=== PATIENT | female | born 1945 | race Caucasian/White ===

== ENCOUNTER 2019-02-26 11:35 | Emergency (ER) | payer MEDICARE, MEDICAID ==
[~2019-02-26] VITALS: Ht 180.3 cm; Wt 125.0 kg
--- NOTE | 2019-02-26 14:03 | NUR ---
ATTEMPT TO ARRANGE TRANSPORT, NO WHEELCHAIR VAN AVAILABLE. 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
--- NOTE | 2019-02-26 14:40 | NUR ---
ANGY ESPINOZA REPORTS 1 HOUR ETA FOR TRANSPORT.
[2019-02-26 14:50] VITALS: BP 138/78
--- NOTE | 2019-02-26 15:31 | NUR ---
TRANSPORT PER [phone] NUMBER HERE TO TRANSPORT PT HOME.
== END 2019-02-26 15:30 | disposition home or self-care (01) ==
LOC: ER 11:35
DX: S83.8X1A Sprain of other specified parts of right knee, initial encounter (principal); M25.461 Effusion, right knee; I48.91 Unspecified atrial fibrillation; G47.30 Sleep apnea, unspecified; Z88.6 Allergy status to analgesic agent; Z90.710 Acquired absence of both cervix and uterus; Z98.890 Other specified postprocedural states; Z95.0 Presence of cardiac pacemaker; W18.39XA Other fall on same level, initial encounter; Y93.89 Activity, other specified; Y92.89 Other specified places as the place of occurrence of the external cause; Y99.8 Other external cause status
CPT/HCPCS: 73564; 99283

== ENCOUNTER 2019-03-04 10:42 | Emergency (ER) | payer MEDICARE, MEDICAID ==
[2019-03-04] MEDS ORDERED: CEPH500C5 PO (11:50)
[2019-03-04] MEDS ORDERED: cephalexin 250mg capsule PO ONE (12:10)
[2019-03-04 12:38] VITALS: BP 146/83
--- NOTE | 2019-03-04 12:50 | NUR ---
SPOKE TO CINTHYA WITH [employer] SHE IS WORKING ON TRANSPORTATION
== END 2019-03-04 14:09 | disposition home or self-care (01) ==
LOC: ER 10:42
DX: L03.115 Cellulitis of right lower limb (principal); I48.91 Unspecified atrial fibrillation; Z95.0 Presence of cardiac pacemaker; Z90.710 Acquired absence of both cervix and uterus; Z98.890 Other specified postprocedural states; Z88.5 Allergy status to narcotic agent; Z88.8 Allergy status to other drugs, medicaments and biological substances; Z79.899 Other long term (current) drug therapy
CPT/HCPCS: 93971; 99284

== ENCOUNTER 2019-05-28 06:27 | Day surgery (SDC) | payer MEDICARE, MEDICAID ==
[2019-05-21 12:28] LABS: BASOPHILS # (AUTO) 0.1 X10'3 (0-0.2); BASOPHILS % (AUTO) 0.9 % (0-1); EOSINOPHILS # (AUTO) 0.2 X10'3 (0-0.9); EOSINOPHILS % (AUTO) 2.3 % (0-6); LYMPHOCYTES # (AUTO) 1.9 X10'3 (1.1-4.8); LYMPHOCYTES % (AUTO) 25.7 % (21-51); MEAN CORPUSCULAR HEMOGLOBIN 30.8 PG (27.0-31.0); MEAN CORPUSCULAR HGB CONC 33.2 g/dL (33.0-36.5); MEAN CORPUSCULAR VOLUME 92.7 FL (78-98); MEAN PLATELET VOLUME 8.3 FL (7.4-10.4); MONOCYTES # (AUTO) 0.7 X10'3 (0-0.9); MONOCYTES % (AUTO) 9.6 % (2-12); NEUTROPHILS # (AUTO) 4.5 X10'3 (1.8-7.7); NEUTROPHILS % (AUTO) 61.5 % (42-75); PRE OP HEMATOCRIT 42.5 % (35.0-45.0); PRE OP HEMOGLOBIN 14.1 g/dL (12.0-16.0); PRE OP PLATELET COUNT 278 X10'3 (140-440); RED BLOOD COUNT 4.59 X10'6 (4.20-5.60); RED CELL DISTRIBUTION WIDTH 14.3 % (11.5-14.5)
[2019-05-21 12:45] LABS: PRE OP PROTIME 16.5 SECONDS (9.0-12.0)
[2019-05-21 12:46] LABS: PRE OP INR 1.7 INR
[2019-05-21 12:50] LABS: ALBUMIN 3.6 G/DL (3.4-5.0); ALBUMIN/GLOBULIN RATIO 0.9 (1.1-1.5); ALKALINE PHOSPHATASE 135 IU/L (46-116); BLOOD UREA NITROGEN 19 MG/DL (7-18); BUN/CREATININE RATIO 20.9 (6.6-38.0); CALCIUM 9.3 MG/DL (8.5-10.1); CHLORIDE 105 MMOL/L (99-107); CREATININE 0.91 MG/DL (0.40-0.90); PRE OP ALT 25 U/L (30-65); PRE OP ANION GAP 5 (8-16); PRE OP AST 16 U/L (10-37); PRE OP BILIRUB, TOTAL 0.3 MG/DL (0.0-1.0); PRE OP GLUCOSE 97 MG/DL (70-104); PRE OP POTASSIUM 4.9 MMOL/L (3.4-5.1); PRE OP SODIUM 142 MMOL/L (135-145); TOTAL PROTEIN 7.7 G/DL (6.4-8.2); eGFR 60 ML/MIN
[~2019-05-28] VITALS: Ht 180.3 cm; Wt 119.0 kg
[~2019-05-28 06:27] MED LIST: AMLO-513 PO; BUPR150T6 PO; CALC500T43 PO; CHOL2000 PO; ESCI20TA38 PO; FENT-16 TOP; FLEC100T PO; FLUT15.87; FURO80TA3 PO; LORA10TA7 PO; POTA8CAP20 PO; ROSU5TAB12 PO; WARF-55 PO
[2019-05-28] MEDS ORDERED: BUPIVAcaine/PF 2.5mg/ml (0.25%) 10ml vial ONE (06:39)
[2019-05-28] MEDS ORDERED: LIDOcaine 1% (10mg/ml) 2ml vial ONE (06:56)
[2019-05-28] MEDS ORDERED: famotidine 20mg tablet PO ONE (07:00)
[2019-05-28] MEDS ORDERED: cefazolin/dext.iso 2gm/100 ML IV ONE (07:00)
[2019-05-28] MEDS ORDERED: ringers solution, lacted 1,000 ML IV SCH (07:00)
[2019-05-28 08:20] VITALS: BP 131/76
[2019-05-28] MEDS ORDERED: LIDOcaine 0.5% (5mg/ml) 50ml vial ONE (08:30)
[2019-05-28] MEDS ORDERED: fentaNYL/PF 50MCG/1 ML 2ML syringe ONE ×2 (08:33→08:44)
[2019-05-28] MEDS ORDERED: midazolam 2 mg/2 ml injection ONE ×2 (08:43→08:45)
[2019-05-28 09:05] VITALS: BP 130/66
--- NOTE | 2019-05-28 09:05 | NUR ---
Received from OR via BED, accompanied by Anesthesiologist DR GRIER and report given by Anesthesiolgist. PATIENT A&OX4, DENIES PAIN, V/S WNL, NEUROVASCULAR CHECKS INTACT, 20G PIV LUE, SCD ON, DRESSING TO RIGHT WRIST CDI ELEVATED WITH ICEBAG APPLIED.
[2019-05-28 09:15] VITALS: BP 124/69
[2019-05-28 09:25] VITALS: BP 129/68
[2019-05-28 09:35] VITALS: BP 121/65
--- NOTE | 2019-05-28 09:35 | NUR ---
PATIENT A&OX4, DENIES PAIN, V/S WNL, NEUROVASCULAR CHECKS INTACT, 20G PIV LUE D/C, SCD OFF, DRESSING TO RIGHT WRIST CDI ELEVATED WITH ICEBAG APPLIED. I HAVE REVIEWED D/C INSTRUCTIONS WITH PATIENT AND FAMILY AND THEY HAVE VERBALIZED UNDERSTANDING. PATIENT D/C HOME WITH ALL BELONGINGS AND FAMILY GAVE TRANSPORT HOME.
== END 2019-05-28 09:35 | disposition home or self-care (01) ==
LOC: PAS 06:27
PROVIDERS: ATTEND Orthopaedic Surgery Hand Surgery
DX: G56.01 Carpal tunnel syndrome, right upper limb (principal); G47.30 Sleep apnea, unspecified; I10 Essential (primary) hypertension; I48.91 Unspecified atrial fibrillation; Z95.0 Presence of cardiac pacemaker; Z88.5 Allergy status to narcotic agent; Z88.8 Allergy status to other drugs, medicaments and biological substances; Z91.040 Latex allergy status; Z96.653 Presence of artificial knee joint, bilateral; Z96.642 Presence of left artificial hip joint; Z79.899 Other long term (current) drug therapy; Z79.01 Long term (current) use of anticoagulants; Z72.89 Other problems related to lifestyle; Z87.891 Personal history of nicotine dependence
CPT/HCPCS: 36415; 64721; 80053; 82948; 85025; 85610; 85730; J2001; J2250; J3010; J3490; A4215; A6449; J7120

== ENCOUNTER 2021-10-23 10:29 | Day surgery (SDC) | payer MEDICARE, MEDICAID ==
[2021-10-19 11:14] LABS: HEMOGLOBIN 14.3 g/dl (12.0-16.0); MEAN PLATELET VOLUME 9.3 FL (7.4-10.4); WHITE BLOOD COUNT 5.5 X10'3 (4.5-11.0)
[2021-10-19 11:17] LABS: BASOPHILS # (AUTO) 0.1 X10'3 (0-0.2); EOSINOPHILS # (AUTO) 0.1 X10'3 (0-0.9); EOSINOPHILS % (AUTO) 2.1 % (0-6); HEMATOCRIT 42.2 % (35.0-45.0); LYMPHOCYTES # (AUTO) 1.7 X10'3 (1.1-4.8); LYMPHOCYTES % (AUTO) 30.9 % (21-51); MEAN CORPUSCULAR HEMOGLOBIN 32.1 PG (27.0-31.0); MEAN CORPUSCULAR HGB CONC 33.8 g/dL (33.0-36.5); MEAN CORPUSCULAR VOLUME 94.8 FL (78-98); MONOCYTES # (AUTO) 0.4 X10'3 (0-0.9); MONOCYTES % (AUTO) 6.7 % (2-12); NEUTROPHILS # (AUTO) 3.3 X10'3 (1.8-7.7); NEUTROPHILS % (AUTO) 59.3 % (42-75); PLATELET COUNT 260 X10'3 (140-440); RED BLOOD COUNT 4.45 X10'6 (4.20-5.60); RED CELL DISTRIBUTION WIDTH 13.9 % (11.5-14.5)
[2021-10-19 11:21] LABS: APTT 35 SECONDS (22-32)
[2021-10-19 11:37] LABS: ALANINE AMINOTRANSFERASE 24 U/L (12-78); ALBUMIN 3.8 G/DL (3.4-5.0); ALBUMIN/GLOBULIN RATIO 1.1 (1.1-1.5); ALKALINE PHOSPHATASE 122 IU/L (46-116); ANION GAP 7 (8-16); ASPARTATE AMINO TRANSFERASE 17 U/L (10-37); BILIRUBIN,TOTAL 0.5 MG/DL (0.1-1.0); BLOOD UREA NITROGEN 18 MG/DL (7-18); BUN/CREATININE RATIO 19.6 (6.6-38.0); CALCIUM 9.3 MG/DL (8.5-10.1); CHLORIDE 104 MMOL/L (99-107); CHOL/HDL RATIO 3.3 (0.00-4.99); CHOLESTEROL 175 MG/DL (0-200); CREATININE 0.92 MG/DL (0.40-0.90); GLUCOSE 90 MG/DL (70-104); HDL CHOLESTEROL 53 MG/DL (35-60); LDL CHOLESTEROL 94 MG/DL (50-100); SODIUM 140 MMOL/L (135-145); TOTAL CARBON DIOXIDE 29.5 MMOL/L (24-32); TOTAL PROTEIN 7.2 G/DL (6.4-8.2); TRIGLYCERIDES 83 MG/DL (20-135); eGFR 59 ML/MIN
[~2021-10-23] VITALS: Ht 180.3 cm; Wt 124.3 kg
[2021-10-23] VITALS (12 sets, daily range): BP systolic 108–128; BP diastolic 64–86
[~2021-10-23 10:29] MED LIST changes: +BUPR-317 PO; -BUPR150T6 PO; +CALC-932 PO; -CALC500T43 PO; -ESCI20TA38 PO; +ESCI20TA39 PO
[2021-10-23] MEDS ORDERED: SERT100T PO (10:52)
[2021-10-23] MEDS ORDERED: AMLO1TAB42 PO (10:53)
[2021-10-23] MEDS ORDERED: WARF6TAB49 PO (10:54)
[2021-10-23] MEDS ORDERED: ACET-1008 PO (10:55)
[2021-10-23] MEDS ORDERED: CHOL20004 PO (10:55)
[2021-10-23] MEDS ORDERED: MIDAZolam 1mg/ml 10ml vial IV ONE (11:00)
[2021-10-23] MEDS ORDERED: fentaNYL/PF 50MCG/1 ML 2ML syringe IV ONE (11:00)
[2021-10-23] MEDS ORDERED: normal saline 1000ml 1,000 ML IV SCH (11:00)
== END 2021-10-23 16:45 | disposition home or self-care (01) ==
LOC: SSTAY O 10:29
PROVIDERS: ATTEND Internal Medicine Interventional Cardiology
DX: I48.0 Paroxysmal atrial fibrillation (principal); G47.33 Obstructive sleep apnea (adult) (pediatric); I10 Essential (primary) hypertension; I49.5 Sick sinus syndrome; E78.5 Hyperlipidemia, unspecified; I65.29 Occlusion and stenosis of unspecified carotid artery; E66.9 Obesity, unspecified; Z68.38 Body mass index [BMI] 38.0-38.9, adult; M19.90 Unspecified osteoarthritis, unspecified site; Z79.899 Other long term (current) drug therapy; Z95.0 Presence of cardiac pacemaker; Z88.5 Allergy status to narcotic agent; Z91.09 Other allergy status, other than to drugs and biological substances
CPT/HCPCS: 36415; 80053; 80061; 83880; 85025; 85610; 85730; 92960; 94799; J2250; J3010; J7030

== ENCOUNTER 2021-11-13 11:22 | Emergency (ER) | payer MEDICARE, MEDICAID ==
[~2021-11-13] VITALS: Ht 182.9 cm; Wt 129.7 kg
[~2021-11-13 11:22] MED LIST changes: +ACET-1008 PO; -AMLO-513 PO; +AMLO1TAB42 PO; -CHOL2000 PO; +CHOL20004 PO; -ESCI20TA39 PO; -FENT-16 TOP; -LORA10TA7 PO; +SERT100T PO; -WARF-55 PO; +WARF6TAB49 PO
[2021-11-13 11:28] VITALS: BP 154/75
[2021-11-13] MEDS ORDERED: acetaminophen 325mg tablet PO ONE (12:45)
== END 2021-11-13 13:40 | disposition home or self-care (01) ==
LOC: ER 11:22
DX: R53.1 Weakness (principal); G47.30 Sleep apnea, unspecified; I48.91 Unspecified atrial fibrillation; Z87.19 Personal history of other diseases of the digestive system; Z79.899 Other long term (current) drug therapy; Z79.01 Long term (current) use of anticoagulants; Z91.040 Latex allergy status; Z88.8 Allergy status to other drugs, medicaments and biological substances; W19.XXXA Unspecified fall, initial encounter; Y93.89 Activity, other specified; Y92.89 Other specified places as the place of occurrence of the external cause; Y99.8 Other external cause status
CPT/HCPCS: 70450; 72125; 93005; 99284

== ENCOUNTER 2022-09-13 05:45 | Day surgery (SDC) | payer MEDICARE, MEDICAID ==
[2022-09-04 16:37] LABS: BASOPHILS # (AUTO) 0.1 X10'3 (0-0.2); BASOPHILS % (AUTO) 1.1 % (0-1); EOSINOPHILS # (AUTO) 0.1 X10'3 (0-0.9); EOSINOPHILS % (AUTO) 1.9 % (0-6); LYMPHOCYTES # (AUTO) 2.2 X10'3 (1.1-4.8); LYMPHOCYTES % (AUTO) 28.4 % (21-51); MEAN CORPUSCULAR HEMOGLOBIN 31.6 PG (27.0-31.0); MEAN CORPUSCULAR HGB CONC 33.2 g/dL (33.0-36.5); MEAN CORPUSCULAR VOLUME 95.4 FL (78-98); MONOCYTES # (AUTO) 0.6 X10'3 (0-0.9); NEUTROPHILS # (AUTO) 4.6 X10'3 (1.8-7.7); NEUTROPHILS % (AUTO) 60.6 % (42-75); PRE OP HEMATOCRIT 47.9 % (35.0-45.0); PRE OP HEMOGLOBIN 15.9 g/dL (12.0-16.0); PRE OP PLATELET COUNT 250 X10'3 (140-440); RED BLOOD COUNT 5.02 X10'6 (4.20-5.60); RED CELL DISTRIBUTION WIDTH 14.2 % (11.5-14.5)
[2022-09-04 16:48] LABS: ALBUMIN 3.7 G/DL (3.4-5.0); ALKALINE PHOSPHATASE 115 IU/L (46-116); BLOOD UREA NITROGEN 31 MG/DL (7-18); BUN/CREATININE RATIO 30.4 (6.6-38.0); CALCIUM 9.8 MG/DL (8.5-10.1); CHLORIDE 102 MMOL/L (99-107); CREATININE 1.02 MG/DL (0.40-0.90); PRE OP ALT 17 U/L (30-65); PRE OP ANION GAP 10 (8-16); PRE OP AST 22 U/L (10-37); PRE OP BILIRUB, TOTAL 0.6 MG/DL (0.0-1.0); PRE OP GLUCOSE 98 MG/DL (70-104); PRE OP POTASSIUM 3.9 MMOL/L (3.4-5.1); PRE OP SODIUM 142 MMOL/L (135-145); TOTAL CARBON DIOXIDE 30.4 MMOL/L (24-32); TOTAL PROTEIN 7.3 G/DL (6.4-8.2); eGFR 52 ML/MIN
[~2022-09-13] VITALS: Ht 177.8 cm; Wt 271.0 kg
[2022-09-13] VITALS (8 sets, daily range): BP systolic 112–132; BP diastolic 71–81
[~2022-09-13 05:45] MED LIST changes: -ACET-1008 PO; +ACET-75 PO; -AMLO1TAB42 PO; +APIX5TAB3 PO; +DICL100G30 TOP; +EMPA10TA PO; -FLEC100T PO; +SACU1TAB7 PO; -WARF6TAB49 PO; +ceFAZolin inj. 2,000 MG in dextrose 5%-water 100 ML IV ONE; +ceFAZolin inj. 3,000 MG in normal saline 100ml IV soln 100 ML IV ONE; +famotidine 20mg tablet PO ONE; +ringers solution, lacted 1,000 ML IV SCH
[2022-09-13] MEDS ORDERED: BUPIVAcaine 0.5% inj/PF 30 ML ONE (06:46)
[2022-09-13] MEDS ORDERED: morphine 2 MG/ML inj. syringe IV PRN (07:10)
[2022-09-13] MEDS ORDERED: hydrALAZINE 20mg/ml inj. IV PRN (07:10)
[2022-09-13] MEDS ORDERED: fentaNYL/PF 50MCG/1 ML 2ML syringe IV PRN ×2 (07:10)
[2022-09-13] MEDS ORDERED: ringers solution, lacted 1,000 ML IV SCH (07:10)
[2022-09-13] MEDS ORDERED: labetalol 20mg/4ml (5mg/ml) syringe IV PRN (07:10)
[2022-09-13] MEDS ORDERED: morphine 4 MG/ML inj SYRINge IV PRN (07:10)
[2022-09-13] MEDS ORDERED: ondansetron/PF 4mg/2ml inj IV PRN (07:10)
[2022-09-13] MEDS ORDERED: FENTANYL CITRATE/PF 50 MCG/1 ML VIAL ONE (07:15)
[2022-09-13] MEDS ORDERED: MIDAZolam 1mg/ml 10ml vial ONE (07:15)
[2022-09-13] MEDS ORDERED: ketorolac trometh. 30mg/ml inj. ONE (07:16)
[2022-09-13] MEDS ORDERED: LIDOcaine 0.5% (5mg/ml) 50ml vial ONE (07:16)
[2022-09-13] MEDS ORDERED: BUPIVAcaine 0.5% inj/PF 30 ml vial IJ ONE (08:11)
--- NOTE | 2022-09-13 08:47 | NUR ---
Received from OR via , accompanied by Anesthesiologist JARED AND OR NURSE and report given by Anesthesiolgist. PT IS A/OX4. DENIES PAIN OR DISCOMFORT. RT ARM SPLINT, GAUZE, DONTAE WRAP; CDI. VSS. Addendum: 09/13/22 at 1037 by Ghislaine Mota RN Amended: Links added.
== END 2022-09-13 10:27 | disposition home or self-care (01) ==
LOC: PAS 05:45
PROVIDERS: ATTEND Orthopaedic Surgery Hand Surgery
DX: M72.0 Palmar fascial fibromatosis [Dupuytren] (principal); I10 Essential (primary) hypertension; Z88.5 Allergy status to narcotic agent; Z91.040 Latex allergy status; Z90.710 Acquired absence of both cervix and uterus; Z95.0 Presence of cardiac pacemaker; Z96.653 Presence of artificial knee joint, bilateral; Z96.642 Presence of left artificial hip joint; Z79.01 Long term (current) use of anticoagulants; Z79.899 Other long term (current) drug therapy; Z87.891 Personal history of nicotine dependence
CPT/HCPCS: 26121; 36415; 80053; 82948; 85025; 93005; J0690; J1885; J2250; J3010; J3490; J7030; J7120; S0020; Z7506; Z7508; Z7512; A4215; A4618; A7000

== ENCOUNTER 2023-01-01 13:23 | Emergency (ER) | payer MEDICARE, MEDICAID ==
[~2023-01-01] VITALS: Ht 177.8 cm; Wt 123.6 kg
[~2023-01-01 13:23] MED LIST changes: -ceFAZolin inj. 2,000 MG in dextrose 5%-water 100 ML IV ONE; -ceFAZolin inj. 3,000 MG in normal saline 100ml IV soln 100 ML IV ONE; -famotidine 20mg tablet PO ONE; -ringers solution, lacted 1,000 ML IV SCH
--- NOTE | 2023-01-01 13:53 | NUR ---
VO for head CT from Dr. Hicks. reports he cleared pt of c-colar and reports no need for cervicle CT
[2023-01-01 15:37] VITALS: BP 131/94
== END 2023-01-01 15:58 | disposition home or self-care (01) ==
LOC: ER 13:24
DX: M25.562 Pain in left knee (principal); R51.9 Headache, unspecified; Z79.899 Other long term (current) drug therapy; I50.9 Heart failure, unspecified; F32.A Depression, unspecified; Z88.5 Allergy status to narcotic agent; Z91.040 Latex allergy status; W19.XXXA Unspecified fall, initial encounter; Y93.89 Activity, other specified; Y92.89 Other specified places as the place of occurrence of the external cause; Y99.8 Other external cause status
CPT/HCPCS: 70450; 73564; 99284

== ENCOUNTER 2023-07-01 11:55 | Day surgery (SDC) | payer MEDICARE, MEDICAID ==
[2023-06-27 12:37] LABS: BASOPHILS % (AUTO) 0.9 % (0-1); EOSINOPHILS # (AUTO) 0.1 X10'3 (0-0.9); EOSINOPHILS % (AUTO) 2.4 % (0-6); HEMATOCRIT 45.9 % (35.0-45.0); HEMOGLOBIN 15.2 g/dl (12.0-16.0); LYMPHOCYTES # (AUTO) 1.9 X10'3 (1.1-4.8); LYMPHOCYTES % (AUTO) 35.4 % (21-51); MEAN CORPUSCULAR HEMOGLOBIN 31.7 PG (27.0-31.0); MEAN CORPUSCULAR HGB CONC 33.1 g/dL (33.0-36.5); MEAN CORPUSCULAR VOLUME 95.9 FL (78-98); MEAN PLATELET VOLUME 9.3 FL (7.4-10.4); MONOCYTES # (AUTO) 0.4 X10'3 (0-0.9); MONOCYTES % (AUTO) 7.9 % (2-12); NEUTROPHILS # (AUTO) 2.9 X10'3 (1.8-7.7); NEUTROPHILS % (AUTO) 53.4 % (42-75); PLATELET COUNT 227 X10'3 (140-440); RED BLOOD COUNT 4.78 X10'6 (4.20-5.60); RED CELL DISTRIBUTION WIDTH 15.6 % (11.5-14.5); WHITE BLOOD COUNT 5.4 X10'3 (4.5-11.0)
[2023-06-27 12:46] LABS: APTT 29 SECONDS (22-32); PROTHROMBIN TIME 10.6 SECONDS (9.0-12.0)
[2023-06-27 12:51] LABS: ALBUMIN 3.6 G/DL (3.4-5.0); ANION GAP 6 (8-16); BLOOD UREA NITROGEN 15 MG/DL (7-18); CALCIUM 9.5 MG/DL (8.5-10.1); CHLORIDE 106 MMOL/L (99-107); CHOL/HDL RATIO 3.2 (0.00-4.99); CHOLESTEROL 141 MG/DL (0-200); GLUCOSE 87 MG/DL (70-104); HDL CHOLESTEROL 44 MG/DL (35-60); LDL CHOLESTEROL 76 MG/DL (50-100); SODIUM 140 MMOL/L (135-145); TOTAL CARBON DIOXIDE 27.8 MMOL/L (24-32); TRIGLYCERIDES 117 MG/DL (20-135); eGFR 53 ML/MIN
[~2023-07-01] VITALS: Ht 177.8 cm; Wt 118.6 kg
[2023-07-01] VITALS (11 sets, daily range): BP systolic 113–134; BP diastolic 62–97; PULSE 69–82; RESP 10–20; TEMP 98.6; O2SAT 94–97
[~2023-07-01 11:55] MED LIST changes: -DICL100G30 TOP; +DICL100G59 TOP
[2023-07-01] MEDS ORDERED: normal saline 1,000 ML IV SCH (12:15)
[2023-07-01] MEDS ORDERED: diphenhydrAMINE 25mg capsule PO PRN (12:15)
[2023-07-01] MEDS ORDERED: LORazepam 0.5 MG tablet PO PRN (12:15)
[2023-07-01] MEDS ORDERED: MECO10005 (12:47)
[2023-07-01] MEDS ORDERED: BUPR300T86 PO (12:47)
[2023-07-01] MEDS ORDERED: SOLI10TA7 PO (12:47)
[2023-07-01] MEDS ORDERED: METO-384 PO (12:47)
[2023-07-01] MEDS ORDERED: VITAMIN D (12:49)
[2023-07-01] MEDS ORDERED: iohexol 350MG/ML 100ml bottle IV ONE (14:38)
[2023-07-01] MEDS ORDERED: fentaNYL/PF 50MCG/1 ML 2ML syringe ONE (14:38)
[2023-07-01] MEDS ORDERED: heparin 1,000unit/ml 10ml vial 10 ML ONE (14:38)
[2023-07-01] MEDS ORDERED: verapamil 2.5 mg/ml inj IV ONE (14:38)
[2023-07-01] MEDS ORDERED: midazolam 1 mg/ML 2ml injection ONE (14:38)
[2023-07-01] MEDS ORDERED: nitroGLYCERIN 500mcg/5mL D5W 5 ML IV ONE (14:39)
[2023-07-01] MEDS ORDERED: LIDOcaine 1% (10mg/ml) 2ml vial ONE (15:04)
[2023-07-01] MEDS ORDERED: iohexol 350 MG/ML 50ML vial IV ONE (15:17)
[2023-07-01] MEDS ORDERED: OXAZEpam 15mg capsule PO PRN (16:20)
[2023-07-01] MEDS ORDERED: ondansetron/PF 4mg/2ml inj IV PRN (16:20)
[2023-07-01] MEDS ORDERED: proCHLORperazine 10 MG/2 ml inj IV PRN (16:20)
== END 2023-07-01 19:32 | disposition home or self-care (01) ==
LOC: SSTAY O 11:55
PROVIDERS: ATTEND Student in an Organized Health Care Education/Training Program
DX: I34.0 Nonrheumatic mitral (valve) insufficiency (principal); I48.91 Unspecified atrial fibrillation; E78.5 Hyperlipidemia, unspecified; I65.29 Occlusion and stenosis of unspecified carotid artery; I11.0 Hypertensive heart disease with heart failure; I50.9 Heart failure, unspecified; E66.9 Obesity, unspecified; Z68.37 Body mass index [BMI] 37.0-37.9, adult; M19.90 Unspecified osteoarthritis, unspecified site; I42.9 Cardiomyopathy, unspecified; G47.33 Obstructive sleep apnea (adult) (pediatric); Z95.0 Presence of cardiac pacemaker; Z79.899 Other long term (current) drug therapy; Z88.1 Allergy status to other antibiotic agents; Z88.5 Allergy status to narcotic agent; Z91.040 Latex allergy status; Z91.048 Other nonmedicinal substance allergy status
CPT/HCPCS: 36415; 80048; 80061; 85025; 85610; 85730; 93005; 93460; 99152; J1644; J2250; J3010; J3490; J7030; Q9967; A6258; A6402; A6449; C1751; C1894

== ENCOUNTER 2023-09-11 08:14 | Inpatient (IN) | payer MEDICARE, MEDICAID ==
[~2023-09-11] VITALS: Ht 177.8 cm; Wt 110.0 kg
[2023-09-11] VITALS (30 sets, daily range): BP systolic 121–177; BP diastolic 66–115; PULSE 77–108; RESP 10–26; TEMP 98.1–98.2; O2SAT 90–100
[~2023-09-11 08:14] MED LIST changes: +BUPR300T86 PO; -CHOL20004 PO; +MECO10005; +METO-384 PO; +SOLI10TA7 PO; +VITAMIN D
[2023-09-11] MEDS ORDERED: acetaminophen 1,000mg/100ml IV 100 ML IV STA (09:06)
[2023-09-11] MEDS ORDERED: propofol 10mg/ml 20ml vial IV ONE (09:20)
[2023-09-11] MEDS ORDERED: ondansetron/PF 4mg/2ml inj IV ONE ×2 (10:40→11:30)
[2023-09-11] MEDS ORDERED: morphine 2 MG/ML inj. syringe IV ONE ×2 (10:40→11:30)
[2023-09-11 11:21] LABS: BASOPHILS % (AUTO) 0.5 % (0-1); EOSINOPHILS % (AUTO) 0.7 % (0-6); HEMOGLOBIN 14.4 g/dl (12.0-16.0); LYMPHOCYTES # (AUTO) 0.9 X10'3 (1.1-4.8); LYMPHOCYTES % (AUTO) 12.9 % (21-51); MEAN CORPUSCULAR HEMOGLOBIN 31.8 PG (27.0-31.0); MEAN CORPUSCULAR HGB CONC 32.9 g/dL (33.0-36.5); MEAN CORPUSCULAR VOLUME 96.8 FL (78-98); MEAN PLATELET VOLUME 9.1 FL (7.4-10.4); MONOCYTES # (AUTO) 0.4 X10'3 (0-0.9); MONOCYTES % (AUTO) 5.9 % (2-12); NEUTROPHILS # (AUTO) 5.4 X10'3 (1.8-7.7); PLATELET COUNT 227 X10'3 (140-440); RED BLOOD COUNT 4.54 X10'6 (4.20-5.60); RED CELL DISTRIBUTION WIDTH 14.2 % (11.5-14.5); WHITE BLOOD COUNT 6.8 X10'3 (4.5-11.0)
[2023-09-11] MEDS ORDERED: magnesium 4gm in 100ml NS 100 ML IV PRN (11:30)
[2023-09-11] MEDS ORDERED: potassium Cl 20 mEq SR tablet PO PRN (11:30)
[2023-09-11] MEDS ORDERED: magnesium Cl slow-release 64mg tablet PO PRN (11:30)
[2023-09-11] MEDS ORDERED: morphine 2 MG/ML inj. syringe IV PRN ×2 (11:30→15:10)
[2023-09-11] MEDS ORDERED: mag hydrox/Alum hydrox/simeth 30ml oral suspension PO PRN (11:30)
[2023-09-11] MEDS ORDERED: bisacodyl 10mg suppository rectal RC PRN (11:30)
[2023-09-11] MEDS ORDERED: DICL20GE TOP (11:30)
[2023-09-11] MEDS ORDERED: magnesium 2GM in 50ml NS 50 ML IV PRN (11:30)
[2023-09-11] MEDS ORDERED: acetaminophen 325mg tablet PO PRN (11:30)
[2023-09-11] MEDS ORDERED: potassium Cl 40MEQ/1/2NS 520ml 520 ML IV PRN (11:30)
[2023-09-11] MEDS ORDERED: SACU1TAB PO (11:30)
[2023-09-11] MEDS ORDERED: ondansetron/PF 4mg/2ml inj IV PRN ×2 (11:30→15:10)
[2023-09-11] MEDS ORDERED: SOLI5TAB2 PO (11:30)
[2023-09-11 11:35] LABS: ALANINE AMINOTRANSFERASE 21 U/L (12-78); ALBUMIN 3.5 G/DL (3.4-5.0); ALKALINE PHOSPHATASE 127 IU/L (46-116); ANION GAP 8 (8-16); ASPARTATE AMINO TRANSFERASE 16 U/L (10-37); BILIRUBIN,TOTAL 0.6 MG/DL (0.1-1.0); BLOOD UREA NITROGEN 19 MG/DL (7-18); BUN/CREATININE RATIO 22.6 (10.0-20.0); CHLORIDE 105 MMOL/L (99-107); CREATININE 0.84 MG/DL (0.40-0.90); GLUCOSE 122 MG/DL (70-104); MAGNESIUM 2.1 MG/DL (1.5-2.4); POTASSIUM 3.8 MMOL/L (3.5-5.1); SODIUM 141 MMOL/L (135-145); TOTAL CARBON DIOXIDE 28.2 MMOL/L (24-32); TOTAL PROTEIN 6.9 G/DL (6.4-8.2); eCRCL 58 ML/MIN; eGFR 65 ML/MIN
[2023-09-11] MEDS: normal saline 1000ml 1,000 ML IV SCH ×2 (11:57→21:35)
[2023-09-11] MEDS ORDERED: proCHLORperazine 10 MG/2 ml inj IV PRN (15:10)
[2023-09-11] MEDS ORDERED: labetalol 20mg/4ml (5mg/ml) syringe IV PRN (15:10)
[2023-09-11] MEDS ORDERED: morphine 4 MG/ML inj SYRINge IV PRN (15:10)
[2023-09-11] MEDS ORDERED: meperidine/PF 25mg/ml syringe IV PRN ×2 (15:10)
[2023-09-11] MEDS ORDERED: enalaprilat dihydrate 2.5mg/2ml vial IV PRN (15:10)
[2023-09-11] MEDS ORDERED: ringers solution, lacted 1,000 ML IV SCH (15:10)
[2023-09-11] MEDS ORDERED: desflurane 240ml liquid inh. IH ONE (16:00)
[2023-09-11] MEDS ORDERED: midazolam 1 mg/ML 2ml injection ONE (16:21)
[2023-09-11] MEDS ORDERED: fentaNYL/PF 50MCG/1 ML 2ML syringe ONE (16:21)
[2023-09-11] MEDS ORDERED: propofol inj 20 ML IV ONE (16:42)
[2023-09-11] MEDS ORDERED: succinylcholine 20mg/ml inj IV ONE (16:42)
[2023-09-11] MEDS ORDERED: hydrALAZINE 20mg/ml inj. IV PRN (17:20)
[2023-09-11] MEDS: meperidine/PF 25mg/ml syringe IV PRN ×2 (17:42→17:49)
[2023-09-11] MEDS: metoprolol succinate 25mg (24-HOUR) SR. Tablet PO SCH ×2 (17:57→18:16)
[2023-09-11] MEDS: sacubitril/valsartan 24mg-26mg tablet PO SCH (17:58)
[2023-09-11] MEDS: K and/or MAG REPLACEMENT MC SCH (20:00)
[2023-09-11] MEDS: docusate sod 100mg capsule PO SCH (20:00)
[2023-09-11] MEDS: apixaban 2.5mg tablet PO SCH (20:00)
[2023-09-11] MEDS: fluticasone nasal spray 16GM bottle NS SCH (21:37)
[2023-09-12] MEDS ORDERED: non-formulary drug (Acetaminophen 1 TAB) PO SCH
[2023-09-12 00:10] VITALS: BP 144/71; PULSE 86
[2023-09-12 02:50] VITALS: BP 124/53; PULSE 77; RESP 16; TEMP 98.4; O2SAT 95
[2023-09-12] MEDS: morphine 2 MG/ML inj. syringe IV PRN ×2 (03:43→11:24)
[2023-09-12 06:00] VITALS: BP 124/67; PULSE 78; RESP 17; TEMP 97.7; O2SAT 95
[2023-09-12 06:42] LABS: BASOPHILS % (AUTO) 0.4 % (0-1); EOSINOPHILS % (AUTO) 0.5 % (0-6); HEMATOCRIT 37.6 % (35.0-45.0); HEMOGLOBIN 12.6 g/dl (12.0-16.0); LYMPHOCYTES # (AUTO) 1.2 X10'3 (1.1-4.8); LYMPHOCYTES % (AUTO) 15.8 % (21-51); MEAN CORPUSCULAR HEMOGLOBIN 32.3 PG (27.0-31.0); MEAN CORPUSCULAR HGB CONC 33.6 g/dL (33.0-36.5); MEAN CORPUSCULAR VOLUME 96.2 FL (78-98); MEAN PLATELET VOLUME 8.8 FL (7.4-10.4); MONOCYTES # (AUTO) 0.8 X10'3 (0-0.9); MONOCYTES % (AUTO) 10.5 % (2-12); NEUTROPHILS # (AUTO) 5.6 X10'3 (1.8-7.7); NEUTROPHILS % (AUTO) 72.8 % (42-75); PLATELET COUNT 188 X10'3 (140-440); RED BLOOD COUNT 3.91 X10'6 (4.20-5.60); RED CELL DISTRIBUTION WIDTH 14.3 % (11.5-14.5); WHITE BLOOD COUNT 7.7 X10'3 (4.5-11.0)
[2023-09-12] MEDS: potassium chloride 8mEq ER tablet PO SCH (07:28)
[2023-09-12] MEDS: sertraline 50mg tablet PO SCH (07:28)
[2023-09-12] MEDS: apixaban 2.5mg tablet PO SCH ×2 (07:28→20:36)
[2023-09-12] MEDS: docusate sod 100mg capsule PO SCH ×2 (07:28→20:36)
[2023-09-12] MEDS: furosemide 40mg tablet PO SCH (07:28)
[2023-09-12] MEDS: metoprolol succinate 25mg (24-HOUR) SR. Tablet PO SCH (07:29)
[2023-09-12] MEDS: sacubitril/valsartan 24mg-26mg tablet PO SCH ×2 (07:29→20:36)
[2023-09-12] MEDS: oxybutynin 5mg tablet PO SCH ×2 (07:29→20:36)
[2023-09-12] MEDS: EMPAGLIFLOZIN 10 MG TABLET PO SCH (07:29)
[2023-09-12] MEDS: buPROPion SR 150mg tablet PO SCH (07:29)
[2023-09-12 07:32] LABS: ALANINE AMINOTRANSFERASE 14 U/L (12-78); ALBUMIN 2.7 G/DL (3.4-5.0); ALBUMIN/GLOBULIN RATIO 0.9 (1.1-1.5); ALKALINE PHOSPHATASE 97 IU/L (46-116); ANION GAP 9 (8-16); ASPARTATE AMINO TRANSFERASE 17 U/L (10-37); BLOOD UREA NITROGEN 13 MG/DL (7-18); BUN/CREATININE RATIO 22.8 (10.0-20.0); CHLORIDE 106 MMOL/L (99-107); CREATININE 0.57 MG/DL (0.40-0.90); GLUCOSE 99 MG/DL (70-104); MAGNESIUM 1.9 MG/DL (1.5-2.4); POTASSIUM 3.5 MMOL/L (3.5-5.1); SODIUM 140 MMOL/L (135-145); TOTAL CARBON DIOXIDE 25.3 MMOL/L (24-32); TOTAL PROTEIN 5.6 G/DL (6.4-8.2); eCRCL 85 ML/MIN; eGFR > 90 ML/MIN
[2023-09-12] MEDS: K and/or MAG REPLACEMENT MC SCH ×2 (08:00→20:00)
[2023-09-12] MEDS ORDERED: non-formulary drug (Bupropion HCl (Bupropion Xl) 1 TAB) PO SCH (08:00)
[2023-09-12] MEDS: normal saline 1000ml 1,000 ML IV SCH ×3 (11:23→21:45)
[2023-09-12] MEDS: acetaminophen w/codeine (30MG) #3 tablet PO PRN ×2 (15:17→20:39)
[2023-09-12 18:00] VITALS: BP 111/61; PULSE 70; RESP 16; TEMP 97.8; O2SAT 94
[2023-09-12] MEDS: magnesium hydroxide 30ml (MOM) UD suspension PO PRN (20:36)
[2023-09-12] MEDS: fluticasone nasal spray 16GM bottle NS SCH (20:44)
[2023-09-12 22:00] VITALS: BP 126/77; PULSE 71; RESP 16; TEMP 97.1; O2SAT 96
[2023-09-13] VITALS (7 sets, daily range): BP systolic 133–150; BP diastolic 74–89; PULSE 63–76; RESP 16–18; TEMP 97.6–98.7; O2SAT 82–96
[2023-09-13] MEDS: acetaminophen w/codeine (30MG) #3 tablet PO PRN ×3 (00:46→14:40)
[2023-09-13 05:53] LABS: BASOPHILS % (AUTO) 0.6 % (0-1); EOSINOPHILS # (AUTO) 0.1 X10'3 (0-0.9); LYMPHOCYTES # (AUTO) 1.3 X10'3 (1.1-4.8); LYMPHOCYTES % (AUTO) 23.9 % (21-51); MEAN CORPUSCULAR HEMOGLOBIN 32.2 PG (27.0-31.0); MEAN CORPUSCULAR HGB CONC 33.3 g/dL (33.0-36.5); MEAN CORPUSCULAR VOLUME 96.8 FL (78-98); MEAN PLATELET VOLUME 9.3 FL (7.4-10.4); MONOCYTES # (AUTO) 0.7 X10'3 (0-0.9); MONOCYTES % (AUTO) 11.8 % (2-12); NEUTROPHILS # (AUTO) 3.4 X10'3 (1.8-7.7); NEUTROPHILS % (AUTO) 61.7 % (42-75); PLATELET COUNT 182 X10'3 (140-440); RED BLOOD COUNT 4.03 X10'6 (4.20-5.60); RED CELL DISTRIBUTION WIDTH 14.2 % (11.5-14.5); WHITE BLOOD COUNT 5.5 X10'3 (4.5-11.0)
[2023-09-13 05:55] LABS: ALANINE AMINOTRANSFERASE 16 U/L (12-78); ALBUMIN 2.7 G/DL (3.4-5.0); ALBUMIN/GLOBULIN RATIO 0.8 (1.1-1.5); ALKALINE PHOSPHATASE 98 IU/L (46-116); ANION GAP 7 (8-16); ASPARTATE AMINO TRANSFERASE 16 U/L (10-37); BILIRUBIN,TOTAL 0.9 MG/DL (0.1-1.0); BLOOD UREA NITROGEN 10 MG/DL (7-18); BUN/CREATININE RATIO 14.7 (10.0-20.0); CALCIUM 8.1 MG/DL (8.5-10.1); CHLORIDE 106 MMOL/L (99-107); CREATININE 0.68 MG/DL (0.40-0.90); GLUCOSE 92 MG/DL (70-104); MAGNESIUM 2.1 MG/DL (1.5-2.4); POTASSIUM 3.4 MMOL/L (3.5-5.1); SODIUM 140 MMOL/L (135-145); TOTAL CARBON DIOXIDE 26.7 MMOL/L (24-32); eCRCL 71 ML/MIN; eGFR 83 ML/MIN
[2023-09-13] MEDS: K and/or MAG REPLACEMENT MC SCH ×2 (08:00→20:10)
[2023-09-13] MEDS: potassium Cl 20 mEq SR tablet PO PRN ×2 (08:12→12:05)
[2023-09-13] MEDS: buPROPion SR 150mg tablet PO SCH (08:13)
[2023-09-13] MEDS: docusate sod 100mg capsule PO SCH ×2 (08:13→20:14)
[2023-09-13] MEDS: EMPAGLIFLOZIN 10 MG TABLET PO SCH (08:13)
[2023-09-13] MEDS: metoprolol succinate 25mg (24-HOUR) SR. Tablet PO SCH (08:13)
[2023-09-13] MEDS: potassium chloride 8mEq ER tablet PO SCH (08:13)
[2023-09-13] MEDS: apixaban 2.5mg tablet PO SCH ×2 (08:13→20:14)
[2023-09-13] MEDS: oxybutynin 5mg tablet PO SCH ×2 (08:14→20:14)
[2023-09-13] MEDS: normal saline 1000ml 1,000 ML IV SCH ×2 (08:14→23:30)
[2023-09-13] MEDS: sertraline 50mg tablet PO SCH (08:14)
[2023-09-13] MEDS: furosemide 40mg tablet PO SCH (08:14)
[2023-09-13] MEDS: sacubitril/valsartan 24mg-26mg tablet PO SCH ×2 (08:20→20:14)
[2023-09-13] MEDS: morphine 2 MG/ML inj. syringe IV PRN (15:42)
[2023-09-13] MEDS: magnesium hydroxide 30ml (MOM) UD suspension PO PRN (15:54)
[2023-09-13] MEDS: fluticasone nasal spray 16GM bottle NS SCH (20:17)
[2023-09-14] MEDS: normal saline 1000ml 1,000 ML IV SCH ×2 (01:37→21:14)
[2023-09-14 06:00] VITALS: BP 161/92; PULSE 82; RESP 16; TEMP 97; O2SAT 93
[2023-09-14 06:08] LABS: BASOPHILS # (AUTO) 0.1 X10'3 (0-0.2); BASOPHILS % (AUTO) 1.5 % (0-1); EOSINOPHILS # (AUTO) 0.1 X10'3 (0-0.9); EOSINOPHILS % (AUTO) 2.1 % (0-6); LYMPHOCYTES # (AUTO) 1.1 X10'3 (1.1-4.8); LYMPHOCYTES % (AUTO) 17.7 % (21-51); MEAN CORPUSCULAR HGB CONC 33.3 g/dL (33.0-36.5); MEAN CORPUSCULAR VOLUME 96.2 FL (78-98); MONOCYTES # (AUTO) 0.5 X10'3 (0-0.9); MONOCYTES % (AUTO) 8.6 % (2-12); NEUTROPHILS # (AUTO) 4.3 X10'3 (1.8-7.7); NEUTROPHILS % (AUTO) 70.1 % (42-75); PLATELET COUNT 187 X10'3 (140-440); RED BLOOD COUNT 4.06 X10'6 (4.20-5.60); RED CELL DISTRIBUTION WIDTH 14.4 % (11.5-14.5); WHITE BLOOD COUNT 6.1 X10'3 (4.5-11.0)
[2023-09-14 06:35] LABS: ALANINE AMINOTRANSFERASE 25 U/L (12-78); ALBUMIN 2.6 G/DL (3.4-5.0); ALBUMIN/GLOBULIN RATIO 0.8 (1.1-1.5); ALKALINE PHOSPHATASE 115 IU/L (46-116); ANION GAP 7 (8-16); ASPARTATE AMINO TRANSFERASE 26 U/L (10-37); BILIRUBIN,TOTAL 0.8 MG/DL (0.1-1.0); BLOOD UREA NITROGEN 11 MG/DL (7-18); BUN/CREATININE RATIO 17.7 (10.0-20.0); CALCIUM 8.1 MG/DL (8.5-10.1); CHLORIDE 108 MMOL/L (99-107); CREATININE 0.62 MG/DL (0.40-0.90); GLUCOSE 93 MG/DL (70-104); MAGNESIUM 2.2 MG/DL (1.5-2.4); POTASSIUM 3.8 MMOL/L (3.5-5.1); SODIUM 143 MMOL/L (135-145); TOTAL CARBON DIOXIDE 27.8 MMOL/L (24-32); TOTAL PROTEIN 5.9 G/DL (6.4-8.2); eCRCL 78 ML/MIN; eGFR > 90 ML/MIN
[2023-09-14] MEDS: morphine 2 MG/ML inj. syringe IV PRN (06:46)
[2023-09-14] MEDS: K and/or MAG REPLACEMENT MC SCH ×2 (07:35→20:00)
[2023-09-14] MEDS: docusate sod 100mg capsule PO SCH ×2 (07:43→21:13)
[2023-09-14] MEDS: potassium chloride 8mEq ER tablet PO SCH (07:44)
[2023-09-14] MEDS: oxybutynin 5mg tablet PO SCH ×2 (07:44→21:13)
[2023-09-14] MEDS: furosemide 40mg tablet PO SCH (07:44)
[2023-09-14] MEDS: apixaban 2.5mg tablet PO SCH ×2 (07:44→21:13)
[2023-09-14] MEDS: metoprolol succinate 25mg (24-HOUR) SR. Tablet PO SCH (07:44)
[2023-09-14] MEDS: sacubitril/valsartan 24mg-26mg tablet PO SCH ×2 (07:44→21:13)
[2023-09-14] MEDS: buPROPion SR 150mg tablet PO SCH (07:44)
[2023-09-14] MEDS: sertraline 50mg tablet PO SCH (07:44)
[2023-09-14] MEDS: EMPAGLIFLOZIN 10 MG TABLET PO SCH (07:45)
[2023-09-14 10:00] VITALS: BP 147/80; PULSE 77; RESP 14; TEMP 98; O2SAT 94
[2023-09-14] MEDS: acetaminophen w/codeine (30MG) #3 tablet PO PRN (13:26)
[2023-09-14 18:00] VITALS: BP 134/75; PULSE 71; RESP 16; TEMP 98.1; O2SAT 96
[2023-09-14] MEDS: fluticasone nasal spray 16GM bottle NS SCH (21:00)
[2023-09-14 21:10] VITALS: BP 139/60; PULSE 76; RESP 16; TEMP 98; O2SAT 96
[2023-09-14 22:00] VITALS: BP 143/86; PULSE 65; RESP 16; TEMP 99.1; O2SAT 97
[2023-09-15] MEDS: normal saline 1000ml 1,000 ML IV SCH ×2 (05:30→07:17)
[2023-09-15 06:00] VITALS: BP 160/86; PULSE 69; RESP 16; TEMP 98.4; O2SAT 97
[2023-09-15] MEDS: K and/or MAG REPLACEMENT MC SCH (07:09)
[2023-09-15] MEDS: acetaminophen w/codeine (30MG) #3 tablet PO PRN ×2 (07:19→16:06)
[2023-09-15] MEDS: sacubitril/valsartan 24mg-26mg tablet PO SCH (07:20)
[2023-09-15] MEDS: sertraline 50mg tablet PO SCH (07:20)
[2023-09-15] MEDS: buPROPion SR 150mg tablet PO SCH (07:20)
[2023-09-15] MEDS: oxybutynin 5mg tablet PO SCH (07:21)
[2023-09-15] MEDS: furosemide 40mg tablet PO SCH (07:21)
[2023-09-15] MEDS: docusate sod 100mg capsule PO SCH (07:21)
[2023-09-15] MEDS: potassium chloride 8mEq ER tablet PO SCH (07:21)
[2023-09-15 07:22] LABS: BASOPHILS % (AUTO) 0.7 % (0-1); EOSINOPHILS # (AUTO) 0.2 X10'3 (0-0.9); EOSINOPHILS % (AUTO) 3.1 % (0-6); LYMPHOCYTES # (AUTO) 1.2 X10'3 (1.1-4.8); LYMPHOCYTES % (AUTO) 19.7 % (21-51); MEAN CORPUSCULAR HEMOGLOBIN 32.1 PG (27.0-31.0); MEAN CORPUSCULAR HGB CONC 33.4 g/dL (33.0-36.5); MEAN CORPUSCULAR VOLUME 95.8 FL (78-98); MEAN PLATELET VOLUME 9.3 FL (7.4-10.4); MONOCYTES # (AUTO) 0.6 X10'3 (0-0.9); MONOCYTES % (AUTO) 10.9 % (2-12); NEUTROPHILS # (AUTO) 3.9 X10'3 (1.8-7.7); NEUTROPHILS % (AUTO) 65.6 % (42-75); PLATELET COUNT 210 X10'3 (140-440); RED BLOOD COUNT 4.07 X10'6 (4.20-5.60); RED CELL DISTRIBUTION WIDTH 13.8 % (11.5-14.5)
[2023-09-15] MEDS: metoprolol succinate 25mg (24-HOUR) SR. Tablet PO SCH (07:22)
[2023-09-15] MEDS: apixaban 2.5mg tablet PO SCH (07:23)
[2023-09-15] MEDS: EMPAGLIFLOZIN 10 MG TABLET PO SCH (07:23)
[2023-09-15 08:02] LABS: ALANINE AMINOTRANSFERASE 31 U/L (12-78); ALBUMIN 2.4 G/DL (3.4-5.0); ALBUMIN/GLOBULIN RATIO 0.7 (1.1-1.5); ALKALINE PHOSPHATASE 122 IU/L (46-116); ANION GAP 9 (8-16); ASPARTATE AMINO TRANSFERASE 30 U/L (10-37); BILIRUBIN,TOTAL 1.1 MG/DL (0.1-1.0); BLOOD UREA NITROGEN 10 MG/DL (7-18); BUN/CREATININE RATIO 15.2 (10.0-20.0); CALCIUM 8.1 MG/DL (8.5-10.1); CHLORIDE 106 MMOL/L (99-107); CREATININE 0.66 MG/DL (0.40-0.90); GLUCOSE 92 MG/DL (70-104); POTASSIUM 3.2 MMOL/L (3.5-5.1); SODIUM 142 MMOL/L (135-145); TOTAL CARBON DIOXIDE 26.6 MMOL/L (24-32); TOTAL PROTEIN 5.8 G/DL (6.4-8.2); eCRCL 74 ML/MIN; eGFR 86 ML/MIN
[2023-09-15 10:00] VITALS: BP 128/84; PULSE 73; RESP 17; TEMP 98.2; O2SAT 96
== END 2023-09-15 16:56 | DRG 561 ==
LOC: ER 08:14 → ED HOLD 11:33 → ORTHO 4S 20:16
PROVIDERS: ADMIT Family Medicine; ATTEND Family Medicine
PROC: 0SWBXJZ Revision of Synthetic Substitute in Left Hip Joint, External Approach (ICD-10-PCS; principal; 2020-09-11)
DX: T84.021A Dislocation of internal left hip prosthesis, initial encounter (principal); I50.9 Heart failure, unspecified; I11.0 Hypertensive heart disease with heart failure
CPT/HCPCS: 36415; 71045; 73501; 73502; 80053; 83735; 85025; 87081; 93005; 94760; 97110; 97161; 97530; 99285; A4314; A4338; A4615; A4618; A4620; A6154; A6213; G0378; J0131; J0330; J2175; J2250; J2270; J2405; J2704; J3010; J7030

== ENCOUNTER 2025-07-07 05:36 | Inpatient (IN) | payer MEDICARE, MEDICAID ==
[~2025-07-07] VITALS: Ht 177.8 cm; Wt 110.0 kg
[~2025-07-07 05:36] MED LIST changes: -BUPR-317 PO; +BUPR-480 PO; +BUPR-726 PO; -BUPR300T86 PO; -DICL100G59 TOP; +DICL20GE TOP; -MECO10005; +MECO10005 PO; -ROSU5TAB12 PO; +ROSU5TAB51 PO; +SACU1TAB PO; -SACU1TAB7 PO; -SOLI10TA7 PO; +SOLI5TAB2 PO; -VITAMIN D; +VITAMIN D PO
--- NOTE | 2025-07-07 06:30 | Physician Documentation ---
Addendum CHIEF COMPLAINT/HPI: The patient is an 80-year-old female with a history of left hip prosthesis that has been dislocated in the past. She also has a history of atrial fibrillation, congestive heart failure, shortness of breath, arthritis and hypertension. She has been unable to bear weight on the left leg for 2-3 days. She was seen at [facility] on 07/04/2025 and an x-ray was taken of the left hip which was reported as the joint being in normal position. However, she reports that at some time she was in a special wheelchair which was very painful and she has not been able to bear weight since then. The patient is a poor historian. Although she is able to tell me her full name, the year and where she is currently she is not able to tell me why she went to [facility] on 07/04/2025 (records from [facility] indicate that her chief complaint was hip pain.). REVIEW OF SYSTEMS: Constitutional: Denies chills, fatigue, fever, weight gain or weight loss. HEENT: Denies hearing loss, sinus pressure or visual changes. Respiratory: Denies cough, shortness of breath or wheezing. Cardiovascular: Denies chest pain, pain while walking (claudication), edema or palpitations. Gastrointestinal: Denies abdominal pain, blood in stool, constipation, diarrhea, heartburn, loss of appetite, nausea or vomiting. Genitourinary: Denies painful urination (dysuria), excessive amount of urine (polyuria) or urinary frequency. Metabolic/Endocrine: Denies cold intolerance, heat intolerance, excessive thirst (polydipsia) or excessive hunger (polyphagia). Neurological: Denies dizziness, extremity numbness, extremity weakness, headaches, seizures or tremors. Psychiatric: Denies anxiety or depression. Integumentary: Denies breast discharge, breast lump, hives, mole change(s), rash or skin lesion. Musculoskeletal: Left hip pain. Hematologic: Denies easily bleeding, easily bruises, lymphedema or issues with blood clots. Immunologic: Denies food allergies or seasonal allergies. PHYSICAL EXAMINATION: Vitals and nursing note reviewed. Constitutional: General: Patient is awake, alert, oriented x 4 in no acute distress and well appearing. Speech is clear and lucid. Appearance: Normal appearance. Patient is not ill-appearing, toxic-appearing or diaphoretic. HENT: Head: Normocephalic and atraumatic. Mouth: Mucous membranes are moist. Pharynx: Oropharynx is clear. Eyes: General: No scleral icterus. Extraocular Movements: Extraocular movements intact. Pupils: Pupils are equal, round, and reactive to light. Neck: Supple, no Kernig or Brudzinski sign. Cardiovascular: Rate and Rhythm: Normal rate and regular rhythm. Heart sounds: No murmur heard. Pulmonary: Effort: No respiratory distress. Breath sounds: No wheezing, rhonchi or rales. Abdominal: General: There is no distension. Palpations: There is no fluid wave, hepatomegaly or mass. Tenderness: There is no abdominal tenderness. There is no guarding. Musculoskeletal: General: The left leg is shortened and externally rotated. Neurovascular is intact. Skin: Coloration: Skin is not jaundiced. Findings: No erythema or rash. Neurological: Mental Status: Patient is alert. An x-ray of the left hip shows a dislocation of the prosthesis. MEDICAL DECISION MAKING: Procedural Sedation: ASA Score: ASA I A normal healthy patient ASA II A patient with mild systemic disease ASA III A patient with severe systemic disease ASA IV A patient with severe systemic disease that is a constant threat to life Time: 8:00 a.m. Informed consent was given to the patient. Indication, alternatives, and potential complications were explained. A nurse was present at the bedside for the entire procedure. See moderate sedation flowsheet for pre- procedure assessment, and pre-and post-procedure vitals. Risks and benefits including aspiration, apnea, anoxia, and were discussed with the patient. Timeout was performed at 8:00 a.m.. Confirmed patient, side, location. Patient was on cardiovascular monitor with end-tidal and oxygen. Suction was available and on. [id number] was ready and prepared. Consent in chart. PIV in with fluids running. ETCO2 and NC connected to patient. Suction was turned on with Yankauer attached. BVM attached to wall oxygen. Oral/nasal airways, Mac/Lopez blades and ET tubes with stylets available. Reversal meds prepared including Narcan 0.4 mg if opioid was being used, not drawn up Epinephrine, cardiac syringe (1:10,000) also available but unopened. Treatment: Bolus propofol titrated, total dose 200 mg for full sedation The patient was monitored with pulse oximetry and cardiac and blood pressure monitor. olus propofol titrated, total dose 200 mg for full sedation were used IV and moderate sedation was achieved. There were no complications and the patient was stable throughout the procedure and at time of discharge. Total time of procedure was 30 minutes. Several attempts were made to reduce the hip utilizing the Captain Stvee maneuver. Unfortunately, they were unsuccessful. 8:40 a.m.: I spoke with our orthopedic surgeon, Dr. York, who requested that I get the patient admitted to the hospitalist and keep her at bedrest. Departure Disposition: ADMITTED INPATIENT Admitted to Inpatient Unit: to hospitalist Admission Level of Care: Med/Surg Impression: Primary Impression: Hip dislocation, left Condition: Stable LEANNE JONES MD Jul 07, 2025 06:30
--- NOTE | 2025-07-07 07:01 | RADIOLOGY REPORT ---
CLINICAL INDICATION: HIP PAIN TECHNIQUE: DI HIP UNILATERAL 2 VIEWS Comparison: DI HIP UNILATERAL 2 VIEWS on DOS: 09/11/23, DI HIP, 1 VIEW WITH PELVIS on DOS: 09/11/23, DI HIP UNILATERAL 2 VIEWS on DOS: 09/11/23 FINDINGS/IMPRESSION: : Hardware within the left hip status post arthroplasty. There is disarticulation of the acetabular and femoral prostheses consistent with dislocation resulting in cephalad subluxation of the femoral prosthesis with respect to the acetabulum. Diffuse generalized osseous demineralization noted. No definite evidence of fracture. Soft tissues are unremarkable.
[2025-07-07 07:43] LABS: MEAN PLATELET VOLUME 8.3 FL (7.4-10.4); RED CELL DISTRIBUTION WIDTH 15.3 % (11.5-14.5)
[2025-07-07 07:53] LABS: INR 1.2 INR
[2025-07-07 07:56] LABS: CREATININE 0.64 MG/DL (0.40-0.90); TOTAL CARBON DIOXIDE 27.5 MMOL/L (24-32); eCRCL 73 ML/MIN; eGFR 89 ML/MIN
--- NOTE | 2025-07-07 07:57 | ELECTROCARDIOGRAPH REPORT ---
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
[2025-07-07] MEDS: normal saline 1000ml 1,000 ML IV ONE (08:00)
[2025-07-07] MEDS: ondansetron/PF 4mg/2ml inj IV ONE (08:00)
[2025-07-07] MEDS: propofol 10mg/ml 20ml vial IV ONE (08:40)
--- NOTE | 2025-07-07 08:54 | RADIOLOGY REPORT ---
left HIP RADIOGRAPH. CLINICAL INDICATION: s/p reduction TECHNIQUE: 3 views of the left hip were obtained. FIndings/Impression: Hardware within the left hip status post arthroplasty. There is disarticulation of the acetabular and femoral prostheses consistent with dislocation resulting in cephalad subluxation of the femoral prosthesis with respect to the acetabulum. Diffuse generalized osseous demineralization noted. No definite evidence of fracture. Soft tissues are unremarkable.
[2025-07-07] MEDS ORDERED: magnesium Cl slow-release 64mg tablet PO PRN (08:55)
[2025-07-07] MEDS ORDERED: ondansetron/PF 4mg/2ml inj IV PRN (08:55)
[2025-07-07] MEDS ORDERED: magnesium hydroxide 30ml (MOM) UD suspension PO PRN (08:55)
[2025-07-07] MEDS ORDERED: magnesium sulf-water 4G/100mL 100 ML IV PRN (08:55)
[2025-07-07] MEDS ORDERED: magnesium sulf-water 2g/50mL 50 ML IV PRN (08:55)
[2025-07-07] MEDS ORDERED: potassium Cl 20 mEq SR tablet PO PRN ×2 (08:55)
[2025-07-07] MEDS ORDERED: mag hydrox/Alum hydrox/simeth 30ml oral suspension PO PRN (08:55)
[2025-07-07] MEDS ORDERED: potassium Cl 40MEQ/1/2NS 520ml 520 ML IV PRN (08:55)
[2025-07-07 11:30] VITALS: BP 118/70; PULSE 79; RESP 12; TEMP 98; O2SAT 99
[2025-07-07] MEDS: morphine 4 MG/ML inj SYRINge IV PRN (12:46)
--- NOTE | 2025-07-07 13:05 | RADIOLOGY REPORT ---
CLINICAL INDICATION: LEFT HIP DISLOCATION, PENDING SURGERY TECHNIQUE: DI HIP UNILATERAL 2 VIEWS Comparison: DI HIP UNILATERAL 2 VIEWS on DOS: 07/07/25, DI HIP UNILATERAL 2 VIEWS on DOS: 07/07/25, DI HIP UNILATERAL 2 VIEWS on DOS: 09/11/23, DI HIP, 1 VIEW WITH PELVIS on DOS: 09/11/23, DI HIP UNILATERAL 2 VIEWS on DOS: 09/11/23 FINDINGS/IMPRESSION: : Dislocated femoral component of left hip arthroplasty.
[2025-07-07 18:00] VITALS: BP 117/72; PULSE 97; RESP 16; TEMP 98.2; O2SAT 94
[2025-07-07] MEDS: docusate sod 100mg capsule PO SCH (19:51)
[2025-07-07] MEDS: K and/or MAG REPLACEMENT MC SCH (20:00)
[2025-07-07] MEDS: fluticasone nasal spray 16GM bottle NS SCH (21:00)
--- NOTE | 2025-07-07 21:04 | HISTORY AND PHYSICAL-Residence ---
History & Physical Providers to CC Resident Creating Document: MARGOMaryNATASHAH, RES ~ History of Present Illness Primary Medical Doctor: DR BARBOSA Reason for Admit\\Complaint: Left hip pain History of Present Illness 80 years old female with past medical history of left hip prosthesis, congestive heart failure, atrial fibrillation, arthritis , hypertension anxiety, depression, pacemaker is admitted for left hip pain. Patient endorses unbearable pain on the left leg for 2-3 days. She was seen at [facility] on 07/04/2025 and an x-ray was taken of the left hip which reported as the joint being in the normal position. However she reports that sometime while she was in patient wheelchair she felt sudden pain that she was not able to bear since then. Patient is overall a poor historian. She mentioned 9/10 stabbing type of pain which is on left hip, aggravated by moving leg and relieved by taking rest, nonradiating, with no associated numbness and tingling, not relieved by wfga-xqw-glostoc medications Patient is overall a poor historian Allergies: Coded Allergies: diltiazem (Verified Allergy, Unknown, 07/01/23) doxycycline (Verified Allergy, Unknown, 07/01/23) rifampin (Verified Allergy, Unknown, 07/01/23) hydrocodone bit (Unverified Adverse Reaction, Severe, SEVERE N/V AND HALLUCINATIONS, 05/27/19) SHE IS OK WITH CODEINE, CAN TAKE T#3 BUT NOT HYDROCODONE OR "ANOTHER OPIOID THAT THE RN TOLD HER WAS STRONGER" (OXYCODONE?) latex (Verified Adverse Reaction, Intermediate, IRRITATION IF PLACED ON OPEN CUTS, 05/27/19) Home Medications Home Medications Active Reported Voltaren Arthritis Pain (Diclofenac Sodium) 1 % Gel..gram. 2 Gm TOP QID VESICARE tablet (Solifenacin Succinate) 5 Mg Tablet 1 Tab PO DAILY 30 Days Entresto 24 mg-26 mg Tablet (Sacubitril/Valsartan) 24 Mg-26 Mg Tablet 1 Tab PO Q12H 30 Days [vitamin d3 50mcg] DAILY B12 Active (Mecobalamin) 1,000 Mcg Tab.chew DAILY Bupropion Xl (Bupropion HCl) 300 Mg Tab.er.24h 1 Tab PO DAILY Metoprolol Succinate 50 Mg Tab.sr.24h 1 Tab PO DAILY Acetaminophen 500 Mg Tablet 1 Tab PO Q8H Jardiance (Empagliflozin) 10 Mg Tablet 1 Tab PO DAILY Eliquis (Apixaban) 5 Mg Tablet 2.5 Mg PO BID Zoloft (Sertraline Hcl) 100 Mg Tablet 1 Tab PO DAILY Slow-K 8 Meq* (Potassium Chloride) 8 Meq Capsule.sa 2 Tab PO DAILY Furosemide 80 Mg Tablet 0.5 Tab PO DAILY Rosuvastatin Calcium 5 Mg Tablet 1 Tab PO 1200 Bupropion Xl (Bupropion HCl) 150 Mg Tab.er.24h 1 Tab PO DAILY Oyster Shell Calcium (Calcium Carbonate) 500 Mg Tablet 1 Tab PO TID 24 Hour Allergy Relief (Fluticasone Propionate) 15.8 Ml [place].susp 1 [place] NA HS Past Medical History Past Medical History Hypertension Congestive heart failure Osteoarthritis Atrial fibrillation Past Surgical History Surgical History Comment Pacemaker Left hip arthroplasty Hysterectomy Past Social History Social History Comment Patient does not have primary care physician Her parole or probation officer was Dr. Mary Andres Lives alone in-home caregivers Uses her wheeled walker Lives In: Home, Assisted Care Occupation: retired ROS ROS Constitutional: Denies chills, fatigue, fever, weight gain or weight loss. HEENT: Denies hearing loss, sinus pressure or visual changes. Respiratory: Denies cough, shortness of breath or wheezing. Cardiovascular: Denies chest pain, pain while walking (claudication), edema or palpitations. Gastrointestinal: Denies abdominal pain, blood in stool, constipation, diarrhea, heartburn, loss of appetite, nausea or vomiting. Genitourinary: Denies painful urination (dysuria), excessive amount of urine (polyuria) or urinary frequency. Metabolic/Endocrine: Denies cold intolerance, heat intolerance, excessive thirst (polydipsia) or excessive hunger (polyphagia). Neurological: Denies dizziness, extremity numbness, extremity weakness, headaches, seizures or tremors. Psychiatric: Denies anxiety or depression. Integumentary: Denies breast discharge, breast lump, hives, mole change(s), rash or skin lesion. Musculoskeletal: Left hip pain, knee pain Hematologic: Denies easily bleeding, easily bruises, lymphedema or issues with blood clots. Immunologic: Denies food allergies or seasonal allergies. Exam Vitals: Vital Signs Date Time Temp Pulse Resp B/P (MAP) Pulse Ox O2 Delivery O2 Flow Rate FiO2 07/07/25 19:52 16 07/07/25 18:30 102 10/9/25 11:30 98.0 118/70 (86) 99 Room Air 07/07/25 10:06 2.0 General: GENERAL: Awake, alert, oriented x4 HEENT : Normocephalic, atraumatic, pupils equal and reactive to light, extraocular movements intact, no scleral icterus or conjunctival pallor,oral mucosa moist NECK: neck is supple, trachea midline, no lymphadenopathy, no thyromegaly, no JV distention RESPIRATORY: Chest expansion equal bilaterally, breath sounds vesicular, no wheezes, or rhonchi. No use of accessory muscles, no tenderness on palpation. CARDIOVASCULAR: S1 and S2 heard, 3/6 blowing type of systolic ejection murmur heard over mitral, tricuspid, aortic area ABDOMEN: Soft, nontender, nondistended, bowel sounds present and normoactive. No organomegaly, no palpable mass, no rebound or guarding NEUROLOGICAL: Alert, oriented, normal memory, speech is normal Cranial nerves II-XII- intact Motor strength 4/5 in upper extremity, could not elicit in lower extremities Sensation-intact in all extremities Reflexes +2 and symmetrical Coordination is intact EXTREMITIES: Bilateral lower extremity lymphedema is present, peripheral pulses felt, left leg is deformed and rotated externally, straight leg raising of left leg he is positive Psychiatric:Appropriate mood and affect, Diagnostic Data Last Recorded Lab Results: 07/07/25 0716 07/07/25 0716 Diagnostic Data: Laboratory Tests Test 07/07/25 07:16 Prothrombin Time 12.3 SECONDS (9.0-12.0) H INR International Normalized Ratio 1.2 INR Coagulation Comments Advance Care Planning Advanced Care plannin - 30 Minutes Additional Plan 80 years old female with past medical history of atrial fibrillation, congestive heart failure, urinary incontinence, osteoarthritis is currently evaluated for left hip pain Left hip pain secondary to Dislocation of internal left hip prosthesis Patient complains of left hip pain which is 9/10 intensity Vitals are normal, WBC count is normal, hemoglobin 10.5, alkaline phosphatase 183 Hip x-ray shows: Dislocated femoral component of left hip arthroplasty. Orthopedics Dr. lagunas was consulted by ED and he he is involved in the care, planning to do surgery tomorrow Patient we will be NPO from midnight Atrial fibrillation Patient has a history of atrial fib and she is on Eliquis and metoprolol Continue metoprolol and held Eliquis in view of surgery Hypertension Patient is currently maintaining soft blood pressure Congestive heart failure not in exacerbation Patient currently not in acute distress We will continue Entresto Jardiance tomorrow after surgery Follow up with echocardiogram Anxiety/depression Started buprenorphine, sertraline Osteoarthritis Follow up with outpatient orthopedician Code Status: DNR Analgesia/Sedation: Morphine Line/tube: Peripheral Nutrition: NPO PT: Ordered Prognosis: Guarded Disposition: Patient will monitoring ortho with 24 hours telemetry. Patient will undergo surgery tomorrow with Dr. Lagunas so she is currently on NPO Susan Duggan PGY1-Internal Medicine Resident Date of Service: Jul 07, 2025 Billing Provider: MARCELINO URIAS MD Common Visit Codes: [id number] INP/OBS CARE (HIGH) Secondary Visit Codes: [id number] CARE PLAN 30 MINUTES SUSAN DUGGAN, RES Jul 07, 2025 21:04 MARCELINO URIAS MD Jul 12, 2025 15:24
[2025-07-07 22:00] VITALS: BP 105/56; PULSE 105; RESP 16; TEMP 98.5; O2SAT 95
[2025-07-07] MEDS ORDERED: PERFLUTREN PROTEIN-A MICROSPHR (Optison) 0.22 MG/ML 3ML VIAL IV PRN (22:00)
[2025-07-08 06:00] VITALS: BP 114/63; PULSE 98; RESP 16; TEMP 99; O2SAT 98
[2025-07-08 06:46] LABS: MEAN PLATELET VOLUME 8.1 FL (7.4-10.4); RED CELL DISTRIBUTION WIDTH 15.6 % (11.5-14.5)
[2025-07-08 07:14] LABS: CREATININE 0.56 MG/DL (0.40-0.90); PRO BRAIN NATRIURETIC PEPTIDE 2275 PG/ML (0-450); TOTAL CARBON DIOXIDE 26.2 MMOL/L (24-32); eCRCL 84 ML/MIN; eGFR > 90 ML/MIN
[2025-07-08 08:00] VITALS: RESP 14; O2SAT 97
[2025-07-08] MEDS ORDERED: BUPROPION HCL 150MG XL 24 HR 150 MG TAB PO SCH (08:00)
[2025-07-08] MEDS: metoprolol succinate 25mg (24-HOUR) SR. Tablet PO SCH (08:20)
[2025-07-08] MEDS: BUPROPION HCL 150MG XL 24 HR 150 MG TAB PO SCH (08:24)
[2025-07-08 08:41] VITALS: RESP 15; O2SAT 98
[2025-07-08] MEDS: ringers solution, lacted 1,000 ML IV SCH (09:45)
[2025-07-08] MEDS ORDERED: morphine 4 MG/ML inj SYRINge IV PRN (09:45)
[2025-07-08] MEDS ORDERED: labetalol 20mg/4ml (5mg/ml) syringe IV PRN (09:45)
[2025-07-08] MEDS ORDERED: ondansetron/PF 4mg/2ml inj IV PRN (09:45)
[2025-07-08] MEDS ORDERED: hydrALAZINE 20mg/ml inj. IV PRN (09:45)
[2025-07-08] MEDS ORDERED: fentaNYL/PF 50MCG/1 ML 2ML syringe IV PRN ×2 (09:45)
[2025-07-08 10:00] VITALS: BP 106/61; PULSE 87; RESP 14; TEMP 99.1; O2SAT 97
[2025-07-08 10:56] VITALS: BP 106/61; PULSE 87; RESP 15; TEMP 99.1; O2SAT 97
[2025-07-08] MEDS: ringers solution, lacted 1,000 ML IV ONE (11:00)
--- NOTE | 2025-07-08 15:28 | PROGRESS NOTE- Residence ---
Progress Note - Resident Providers to CC Resident Creating Document: LIZANDRO FINN RES ~ Antibiotic Timeout Antibiotic Ordered?: No Subjective Patient was seen and examined at the bedside. Surgery was postponed to tomorrow by Dr. Lagunas. NPO after midnight. Pain control with morphine Objective Vital Signs Date Time Temp Pulse Resp B/P (MAP) Pulse Ox O2 Delivery O2 Flow Rate FiO2 07/08/25 14:07 14 07/08/25 10:56 99.0 87 97 07/08/25 10:00 106/61 (76) Room Air 07/07/25 10:06 2.0 Result Diagram: 07/08/25 0607/08/25 06 GENERAL: Awake, alert, oriented x4 HEENT : Normocephalic, atraumatic, pupils equal and reactive to light, extraocular movements intact, no scleral icterus or conjunctival pallor,oral mucosa moist NECK: neck is supple, trachea midline, no lymphadenopathy, no thyromegaly, no JV distention RESPIRATORY: Chest expansion equal bilaterally, breath sounds vesicular, no wheezes, or rhonchi. No use of accessory muscles, no tenderness on palpation. CARDIOVASCULAR: S1 and S2 heard, 3/6 blowing type of systolic ejection murmur heard over mitral, tricuspid, aortic area ABDOMEN: Soft, nontender, nondistended, bowel sounds present and normoactive. No organomegaly, no palpable mass, no rebound or guarding NEUROLOGICAL: Alert, oriented, normal memory, speech is normal Cranial nerves II-XII- intact Motor strength 4/5 in upper extremity, could not elicit in lower extremities Sensation-intact in all extremities Reflexes +2 and symmetrical Coordination is intact EXTREMITIES: Bilateral lower extremity lymphedema is present, peripheral pulses felt, left leg is deformed and rotated externally, straight leg raising of left leg he is positive Psychiatric:Appropriate mood and affect, Coagulation Studies Laboratory Tests Test 07/07/25 07:16 Prothrombin Time 12.3 SECONDS (9.0-12.0) H INR International Normalized Ratio 1.2 INR Coagulation Comments Assessment Assessment 80 years old female with past medical history of left hip prosthesis, congestive heart failure, atrial fibrillation, arthritis , hypertension anxiety, depression, pacemaker is admitted for left hip pain. Patient endorses unbearable pain on the left leg for 2-3 days. She was seen at [facility] on 07/04/2025 and an x-ray was taken of the left hip which reported as the joint being in the normal position. However she reports that sometime while she was in patient wheelchair she felt sudden pain that she was not able to bear since then. Patient is overall a poor historian. She mentioned 9/10 stabbing type of pain which is on left hip, aggravated by moving leg and relieved by taking rest, nonradiating, with no associated numbness and tingling, not relieved by zxlf-wwc-xdsnlla medications Patient is overall a poor historian Plan Plan Left hip pain secondary to Dislocation of internal left hip prosthesis Patient complains of left hip pain which is 9/10 intensity Vitals are normal, WBC count is normal, hemoglobin 10.5, alkaline phosphatase 183 Hip x-ray shows: Dislocated femoral component of left hip arthroplasty. Orthopedics Dr. lagunas was consulted by ED and he he is involved in the care, planning to do surgery tomorrow Patient we will be NPO from midnight Atrial fibrillation without RVR Patient has a history of atrial fib and she is on Eliquis and metoprolol Continue metoprolol and held Eliquis in view of surgery Hypertension Patient is currently maintaining soft blood pressure Congestive heart failure not in exacerbation Patient currently not in acute distress We will continue Entresto, Jardiance tomorrow after surgery Follow up with echocardiogram Anxiety/depression Started buprenorphine, sertraline Osteoarthritis Pain medication as tolerated Code Status: DNR Analgesia/Sedation: Morphine Line/tube: Peripheral Nutrition: NPO after midnight PT: Ordered Prognosis: Guarded Disposition: Patient will monitoring ortho with 24 hours telemetry. Patient will undergo surgery tomorrow with Dr. Lagunas so she is currently on NPO after midnight Lizandro Frank MD PGY2 internal medicine resident Date of Service: Jul 08, 2025 Billing Provider: MARCELINO URIAS MD Common Visit Codes: [id number] INP/OBS CARE(HIGH) LIZANDRO FINN, RES Jul 08, 2025 15:28 MARCELINO URIAS MD Jul 12, 2025 15:24
[2025-07-08 22:00] VITALS: BP 113/62; PULSE 78; RESP 14; TEMP 97.5; O2SAT 100
[2025-07-09] VITALS (22 sets, daily range): BP systolic 89–121; BP diastolic 32–80; PULSE 77–134; RESP 10–20; TEMP 97.7–98; O2SAT 94–100
--- NOTE | 2025-07-09 05:27 | CARDIOLOGY REPORT ---
APPROVED REPORT EXAM: Comprehensive 2D, Doppler, and color-flow Echocardiogram. 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 3.29 cm IVC 19.58 mm FS (%) 36.5 % SV 72.0 ml CO 6.1 L/min M-Mode Dimensions Aortic Root 1.87 (2.2-3.7cm) Aortic Cusp Exc 0.89 (1.5-2.0cm) Aortic Valve AoV Peak Joaquin. 336.0 cm/s AoV VTI 72.9 cm AO Peak GR. 45.2 mmHg AO Mean GR. 27 mmHg LVOT VTI 27.64 cm LVOT Peak Joaquin. 134.6 cm/s SYD(VTI)/BSA 1.20 cm2/m2 SYD (VTI) 1.20 cm2 AV DI 0.38 % Mitral Valve MV E Velocity 181.7 cm/s MV Peak Gr. 13 mmHg MV Mean Gr. 5 mmHg MVA (PHT) 2.75 cm2 MVA VTI 2.39 cm2 Tricuspid Valve TR P. Velocity 287 cm/s RAP ESTIMATE 10 mmHg TR Peak Gr. 33 mmHg RVSP 43 mmHg LEFT VENTRICLE Normal LV size and wall thickness. Overall systolic function is normal. LVEF is 65%. RIGHT VENTRICLE Right ventricle is mildly dilated withi adequate function. Elevated right heart pressures with an RVSP of 43 mmHg. ATRIA Left atrium is severely dilated. AORTIC VALVE Trileaflet AV is moderately stenotic. SYD is measured at 1.20 cmsq. Peak / mean gradients of 45 / 27 mmHG. Peak velocity is measured at 3.36 m/sec. Trace insufficiency. MITRAL VALVE Moderate mitral annular calcification. MV clip present with gradient of 13 / 5 mmHg. Peak velocity is measured at 1.82 m/sec. Moderate eccentric regurgitation anteriorly directed. TRICUSPID VALVE The tricuspid valve is normal in structure with mild regurgitation. PULMONIC VALVE Pulmonic valve is not well visualized with physiologic insufficiency. GREAT VESSELS The aortic root is normal in size. The ascending aorta is normal in size. IVC is normal in size. PERICARDIUM Normal pericardium. No effusion. Other Information Study Quality: Adequate Conclusion Normal LV size and wall thickness. Overall systolic function is normal. LVEF is 65%. Right ventricle is mildly dilated withi adequate function. Elevated right heart pressures with an RVSP of 43 mmHg. Left atrium is severely dilated. Trileaflet AV is moderately stenotic. SYD is measured at 1.20 cmsq. Peak / mean gradients of 45 / 27 mmHG. Peak velocity is measured at 3.36 m/sec. Trace insufficiency. Moderate mitral annular calcification. MV clip present with gradient of 13 / 5 mmHg. Peak velocity is measured at 1.82 m/sec. Moderate eccentric regurgitation anteriorly directed. The tricuspid valve is normal in structure with mild regurgitation. Normal pericardium. No effusion.
[2025-07-09] MEDS ORDERED: vancomycin 1,000mg inj ONE (07:00)
[2025-07-09] MEDS ORDERED: tranexamic acid 100mg/ml inj. ONE (07:01)
[2025-07-09] MEDS ORDERED: morphine 4 MG/ML inj SYRINge IV PRN ×2 (07:05→07:17)
[2025-07-09] MEDS ORDERED: labetalol 20mg/4ml (5mg/ml) syringe IV PRN (07:05)
[2025-07-09] MEDS: ringers solution, lacted 1,000 ML IV SCH (07:05)
[2025-07-09] MEDS ORDERED: fentaNYL/PF 50MCG/1 ML 2ML syringe IV PRN ×2 (07:05)
[2025-07-09] MEDS ORDERED: hydrALAZINE 20mg/ml inj. IV PRN (07:05)
[2025-07-09] MEDS ORDERED: ondansetron/PF 4mg/2ml inj IV PRN (07:05)
[2025-07-09 07:22] LABS: MEAN PLATELET VOLUME 8.5 FL (7.4-10.4); RED CELL DISTRIBUTION WIDTH 14.9 % (11.5-14.5)
[2025-07-09] MEDS ORDERED: LIDOcaine 2% (20mg/ml) 5ml vial ONE (07:51)
[2025-07-09] MEDS ORDERED: propofol inj 20 ML IV ONE (07:51)
[2025-07-09] MEDS ORDERED: dexamethasone sod phosphate 4mg/ml inj. ONE (07:51)
[2025-07-09] MEDS ORDERED: ondansetron/PF 4mg/2ml inj ONE (07:51)
[2025-07-09 08:03] LABS: CREATININE 0.56 MG/DL (0.40-0.90); TOTAL CARBON DIOXIDE 26.8 MMOL/L (24-32); eCRCL 84 ML/MIN; eGFR > 90 ML/MIN
[2025-07-09] MEDS ORDERED: metoprolol tartrate 1mg/ml inj IV ONE ×2 (08:07→09:04)
[2025-07-09] MEDS ORDERED: fentaNYL/PF 50MCG/1 ML 2ML syringe ONE ×3 (08:24→10:06)
[2025-07-09] MEDS ORDERED: albumin (Human) 5% 250ml 250 ML IV ONE ×4 (08:34→10:06)
[2025-07-09] MEDS ORDERED: albumin (Human) 5% 250ml 1,000 ML IV ONE (09:36)
[2025-07-09] MEDS ORDERED: amiodarone/D5 360MG/200ML BAG 200 ML IV ONE (09:37)
[2025-07-09 11:27] LABS: ISTAT ANION GAP 12 (8-12); ISTAT BUN 19 mg/dL (7-18); ISTAT CL 105 mmol/L (99-107); ISTAT CREATININE 0.6 mg/dL (0.6-1.1); ISTAT GLUCOSE 120 mg/dL (70-104); ISTAT HGB 8.5 g/dl (12.0-16.0); ISTAT Hct 25 %PCV (35-45); ISTAT IONIZED CALCIUM 1.26 mmol/L (1.03-1.32); ISTAT K 4.3 mmol/L (3.5-5.1); ISTAT NA 139 mmol/L (135-145); ISTAT TOTAL CO2 22 mmol/L (24-32); ISTAT eGFR > 90 ML/MIN; POC BUN/CREATININE RATIO 31.7 (6.6-38.0)
[2025-07-09 12:30] LABS: ISTAT ANION GAP 11 (8-12); ISTAT BUN 20 mg/dL (7-18); ISTAT CL 105 mmol/L (99-107); ISTAT CREATININE 0.6 mg/dL (0.6-1.1); ISTAT GLUCOSE 147 mg/dL (70-104); ISTAT HGB 10.9 g/dl (12.0-16.0); ISTAT Hct 32 %PCV (35-45); ISTAT IONIZED CALCIUM 1.24 mmol/L (1.03-1.32); ISTAT K 4.6 mmol/L (3.5-5.1); ISTAT NA 139 mmol/L (135-145); ISTAT TOTAL CO2 23 mmol/L (24-32); ISTAT eGFR > 90 ML/MIN; POC BUN/CREATININE RATIO 33.3 (6.6-38.0)
--- NOTE | 2025-07-09 12:32 | CONSULTATION REPORT ---
History of Present Illness Providers to CC ~ Reason for Admit\\Admit Dx: Left hip pain Refering MD: DR BARBOSA History of Present Illness Orthopedic consultation. History of present illness: 80-year-old female with a long history status post total hip arthroplasty with recurrent dislocations. She presented to the [facility] with left hip pain a proximally three days prior to this admission and was discharged to home with progressive left hip pain. She presented as presented to our emergency room and workup revealed evidence of a dislocation that was irreducible in the emergency room of her left total hip arthroplasty I was consulted to for evaluation and treatment. Patient was admitted by the hospitalist service in preparation for potential surgery. Past medical history/surgical history was reviewed and is as per the admitting history and physical form. This patient is a poor historian and her memory is compromise. This patient was unable to tell us who did her surgery or when her surgery was performed in fracture was not aware of having had surgery to this hip despite recurrent dislocations. I evaluated this patient in the orthopedic floor within 24 hours of her admission. Still having left hip pain and shortening of her left leg. She denied any other injury. Examination revealed a small abrasion of the anterior left knee two two abrasions were present these measuring 1-1/2-2 cm in diameter affecting the epidermis only these were recent abrasions from her fall. Patient had good distal pulses and capillary refill to this lower extremity. She was able to dorsiflex and plantar flex her ankle and toes. There were no other apparent orthopedic injuries on the initial exam. X-rays: These reveal a dislocation with marked proximal migration of the femoral implant some evidence of osteolysis involving proximal femoral stem aspirate slightly vertical placement of the acetabular cup and increased anteversion was noted in his positioning potentially adding to the risk for dislocations. Cup type was felt to be a Depuy implant with a chori stem implants looked reasonably stable on x-rays. Assessment: Grossly unstable left total hip arthroplasty in 1-year-old female with having multiple traumatic dislocations and reductions. . Plan: Long discussion ensued with this patient with regards to treatment options. She was adamant about surgical staple attempt as surgical stabilization of the hip. This patient was at increased risk for potential complications in the potential for recurrent instability was discussed this is despite surgical stabilization attempt. Patient will be placed in the surgery schedule for open versus closed reduction of the hip and revision of the left total hip arthroplasty with likely stabilization of the hip using a constrained cup liner. I obtained informed consents after discussing in detail the indications the risks benefits limitations and potential complications of surgery she was informed that she was at elevated risk for potential complications stimulant due to her age and a history of multiple dislocations and instability Assessment: Allergies: Coded Allergies: diltiazem (Verified Allergy, Unknown, 07/01/23) doxycycline (Verified Allergy, Unknown, 07/01/23) rifampin (Verified Allergy, Unknown, 07/01/23) hydrocodone bit (Unverified Adverse Reaction, Severe, SEVERE N/V AND HALLUCINATIONS, 05/27/19) SHE IS OK WITH CODEINE, CAN TAKE T#3 BUT NOT HYDROCODONE OR "ANOTHER OPIOID THAT THE RN TOLD HER WAS STRONGER" (OXYCODONE?) latex (Verified Adverse Reaction, Intermediate, IRRITATION IF PLACED ON OPEN CUTS, 05/27/19) Home Medications Home Medications Active Reported Voltaren Arthritis Pain (Diclofenac Sodium) 1 % Gel..gram. 2 Gm TOP QID VESICARE tablet (Solifenacin Succinate) 5 Mg Tablet 1 Tab PO DAILY 30 Days Entresto 24 mg-26 mg Tablet (Sacubitril/Valsartan) 24 Mg-26 Mg Tablet 1 Tab PO Q12H 30 Days [vitamin d3 50mcg] DAILY B12 Active (Mecobalamin) 1,000 Mcg Tab.chew DAILY Bupropion Xl (Bupropion HCl) 300 Mg Tab.er.24h 1 Tab PO DAILY Metoprolol Succinate 50 Mg Tab.sr.24h 1 Tab PO DAILY Acetaminophen 500 Mg Tablet 1 Tab PO Q8H Jardiance (Empagliflozin) 10 Mg Tablet 1 Tab PO DAILY Eliquis (Apixaban) 5 Mg Tablet 2.5 Mg PO BID Zoloft (Sertraline Hcl) 100 Mg Tablet 1 Tab PO DAILY Slow-K 8 Meq* (Potassium Chloride) 8 Meq Capsule.sa 2 Tab PO DAILY Furosemide 80 Mg Tablet 0.5 Tab PO DAILY Rosuvastatin Calcium 5 Mg Tablet 1 Tab PO 1200 Bupropion Xl (Bupropion HCl) 150 Mg Tab.er.24h 1 Tab PO DAILY Oyster Shell Calcium (Calcium Carbonate) 500 Mg Tablet 1 Tab PO TID 24 Hour Allergy Relief (Fluticasone Propionate) 15.8 Ml [place].susp 1 [place] NA HS Physical Exam Last Vital Signs Recorded: Temperature: 98.0, Source: Oral, Heart Rate: 92, Respiratory Rate: 14, BP: 111/69, Pulse Oximetry: 98, Weight: 110.000 Results Diagram Lab Result Diagram: 07/09/2562407/09/2525 KYLER DWYER MD Jul 09, 2025 12:32
--- NOTE | 2025-07-09 12:48 | OPERATIVE REPORT ---
Operative Report Providers to ~ Date of Procedure: Jul 09, 2025 Pre-Operative Diagnosis: left Hip Dislocation Post-Operative Diagnosis SAME as PRE-Op Procedure Performed Open reduction left total hip arthroplasty. Extensive debridement the metallosis material and debris. Placement of a bipolar head with the extent extended with a neck length of 7 mm after it was found that the acetabular cup could not be revised as the metal liner could not be removed . Surgeon: Kyler Dwyer MD [place] None Type of Anesthesia: General Findings: Patient was found to have extensive metallosis grossly unstable total hip with evidence of multiple dislocations. Patient had significant osteolysis surrounding the acetabular cup posteriorly as well as anteriorly patient was found to have significant osteolysis of the proximal femoral stem. Complications None Prosthetics\Implants used: The pew bipolar head was placed in the hip after removing the metal femoral head component. Estimated Blood Loss: 1200 cc Specimen Removed: Metal femoral head. Description of Procedure: This patient was taken to the operating room for a left hip that was grossly unstable and having had required recurrent dislocations. Patient was once in the operating room given prophylactic antibiotics after I had obtained informed consent discussing with her the indications risks benefits limitations and potential complications of the surgery. I had signed her left hip she was given prophylactic antibiotics taken to the operating room and given a general anesthetic placed in the OR table Winston catheter had been inserted prior to the beginning of the procedure. She was now position on the OR table in a right lateral decubitus position using the hip digital data analyst system. The hip on examination an attempt to a closed reduction was unstable and can not be reduced closed. The hip was now prepped and draped in usual sterile orthopaedic fashion surgical time-out was taken and the case was begun. Direct lateral incision of the [place] was used for the potential need to do an extensile approach. this incision measured approximately 10 in. Dissection was then carried through a significant adipose layer but meticulous care was to maintain hemostasis abductor group was released off of the greater trochanter. Moderate bleeding was encountered by a large venous complex in the abductor group of muscle proximally requiring a stick tied to help with minimizing bleeding once this was controlled dissection was then carried down further to visualize the proximal femur which was dislocated posteriorly this was now reduced with traction and external rotation to expose the femoral head the metallic femoral head was removed without difficulty after anterior capsulotomy was accomplished to expose the acetabular component with the proximal femoral stem internally rotated in retracted posteriorly 360 degree view of the cup was appreciated significant osteolysis from metal oasis was encountered requiring extensive debridement could not and removal this material there was areas of significant cavitation surrounding the acetabular component held with the acetabular component remained stable This is a metal on metal construct with a metal liner in this to pew cup. It is well-known that this cup is difficult to remove and we after making attempts for over 45 minutes trying to remove the liner was felt that removing of the liner can not be done without disrupting the cup requiring and a very extensive revision of both the femoral and acetabular components. At this point in time reduction of the hip was accomplished with a placement of a bipolar head two make an effort to try to produce improve stability with this technique without doing a very extensive procedure that was potentially placing this patient is at risk. Surgical time-out this time was approximately 2-1/2 and blood loss was approximately a 1000 cc at this time. Anesthesiologist was recommending minimizing the intervention for patient's safety. Bipolar head was definitive implant was placed in the hip on the femoral component adding approximately 7 mm of length for additional stability of the hip was now reduced. The abductor group was placed and reattached to the proximal greater trochanter and closure of the capsule was accomplished 1. Vicryl abductor group was closed with 2. FiberWire Hemovac was placed into the wound at the into the joint level extending out distally and laterally into the mid thigh hemostasis had been controlled with 2-0 Vicryl ties and chris ctrocautery. Iliotibial band and tensor fascia luis were closed with a running suture of 1. Vicryl. Subcuticular closure was accomplished with a 2-0 Vicryl in a layered fashion subcuticular closure was accomplished with 2-0 Vicryl the skin was closed with skin kerline and sealed with Dermabond skin glue island dressings were applied Hemovac drain was connected. Prior to closure 3 L of antibiotic impregnated normal saline was used pulsatile irrigation and 1 L of antiseptic solution was used for irrigation following that. 1 g of vancomycin was placed the 500 mg placed into the depths of the wound in the other 500 during the iliotibial band tensor fascia closure layer. Patient had maintained good distal pulses and capillary refill to the leg patient was extubated and taken to the recovery room in stable condition and no apparent perioperative complications Counts repoted as correct: Yes KYLER DWYER MD Jul 09, 2025 12:48
[2025-07-09] MEDS ORDERED: non-formulary drug (Acetaminophen 1 TAB) PO SCH (16:00)
[2025-07-09] MEDS: normal saline 1000ml 1,000 ML IV SCH (16:07)
[2025-07-09] MEDS ORDERED: diltiazem-NS 100mg/100ml 100 ML IV SCH (16:20)
--- NOTE | 2025-07-09 16:38 | PROGRESS NOTE- Residence ---
Progress Note - Resident Providers to CC Resident Creating Document: RASHEL DUGGAN RES ~ Antibiotic Timeout Antibiotic Ordered?: Yes Subjective Patient was seen and examined at the bedside. patient undergone open versus closed reduction of the hip and revision of the left total hip arthroplasty with likely stabilization of the hip using a constrained cup liner with .Patient received 2 units of PRBC during surgery. Patient received a dose of amiodarone in OR for Bernadine. During examination patient still has elevated heart rate of 130-145, the patient immediately placed on telemetry. Objective Vital Signs Date Time Temp Pulse Resp B/P (MAP) Pulse Ox O2 Delivery O2 Flow Rate FiO2 07/09/25 16:00 113 07/09/25 13:20 16 100/62 (75) 100 Room Air 0.0 07/09/25 12:14 98.4 Result Diagram: 07/09/2562407/09/25624 GENERAL: Awake, alert, oriented x4 HEENT : Normocephalic, atraumatic, pupils equal and reactive to light, extraocular movements intact, no scleral icterus or conjunctival pallor,oral mucosa moist NECK: neck is supple, trachea midline, no lymphadenopathy, no thyromegaly, no JV distention RESPIRATORY: Chest expansion equal bilaterally, breath sounds vesicular, no wheezes, or rhonchi. No use of accessory muscles, no tenderness on palpation. CARDIOVASCULAR: Tachycardic-irregularly irregular, 3/6 blowing type of systolic ejection murmur heard over mitral, tricuspid, aortic area, patient has a pacemaker ABDOMEN: Soft, nontender, nondistended, bowel sounds present and normoactive. No organomegaly, no palpable mass, no rebound or guarding NEUROLOGICAL: Alert, oriented, normal memory, speech is normal Cranial nerves II-XII- intact Motor strength 4/5 in upper extremity, could not elicit in lower extremities Sensation-intact in all extremities Reflexes +2 and symmetrical Coordination is intact EXTREMITIES: Bilateral lower extremity lymphedema is present, peripheral pulses felt, left leg is deformed and rotated externally, Psychiatric:Appropriate mood and affect, Coagulation Studies Laboratory Tests Test 07/07/25 07:16 Prothrombin Time 12.3 SECONDS (9.0-12.0) H INR International Normalized Ratio 1.2 INR Coagulation Comments Advance Care Planning Advanced Care plannin - 30 Minutes Assessment Assessment 80 years old female with past medical history of left hip prosthesis, congestive heart failure, atrial fibrillation, arthritis , hypertension anxiety, depression, pacemaker is admitted for left hip pain. Patient endorses unbearable pain on the left leg for 2-3 days. She was seen at [facility] on 07/04/2025 and an x-ray was taken of the left hip which reported as the joint being in the normal position. However she reports that sometime while she was in patient wheelchair she felt sudden pain that she was not able to bear since then. Patient is overall a poor historian. She mentioned 9/10 stabbing type of pain which is on left hip, aggravated by moving leg and relieved by taking rest, nonradiating, with no associated numbness and tingling, not relieved by [id number] medications Patient is overall a poor historian Plan Plan Left hip pain secondary to Dislocation of internal left hip prosthesis S/P left total hip arthroplasty with stabilization of the hip Patient undergone-revision of the left total hip arthroplasty with likely stabilization of the hip using a constrained cup Hip x-ray shows: Dislocated femoral component of left hip arthroplasty. Patient undergone-revision of the left total hip arthroplasty with likely stabilization of the hip using a constrained cup liner Orthopedics Dr. lagunas, patient received 2 units of PRBC in OR Given 1 dose of vancomycin pharmacy to dose started on ceftriaxone 1 g IV q.8h -day 1 Started on IV normal saline 100 mL/hour Atrial fibrillation with RVR Patient was given a dose of amiodarone in OR, the current heart rate is irregular with 110-150s Patient has a history of atrial fibrillation-she uses metoprolol p.o. and Eliquis We held Eliquis in view of postsurgical complication, metoprolol p.o. in view of soft blood pressure So we placed patient on telemetry, we have given diltiazem IV 28 mg once bolus and started on diltiazem 5 mg daily titrate up to 10 mg Hypertension Patient is currently maintaining soft blood pressure Congestive heart failure not in exacerbation Echocardiogram shows-LVEF 65%, RVSP 43% Cardiology Dr RIDER recommended to start Entresto from today and Jardiance, atorvastatin, furosemide from tomorrow, Restart Eliquis 2.5 mg p.o. b.i.d. on postop day 3 Patient currently not in acute distress Aortic stenosis Echocardiogram shows moderately stenotic aortic Recommend outpatient follow up with engineering technical analyst Pulmonary hypertension likely secondary to congestive heart failure vs obesity Echocardiogram shows RVSP 43% Anxiety/depression Continue home med buprenorphine, sertraline Osteoarthritis Pain medication as tolerated Code Status: DNR Analgesia/Sedation: Morphine Line/tube: Peripheral Nutrition: Heart healthy PT: Ordered Prognosis: Guarded Disposition: Patient underwent surgery with Dr. lagunas, she is currently on antibiotics with maintenance fluids, he will be monitored in ortho with 24 hours telemetry Rashel Duggan PGY1-Internal Medicine Resident Date of Service: Jul 09, 2025 Billing Provider: SUDHEER CARVALHO DO Common Visit Codes: [id number] INP/OBS CARE(HIGH) RASHEL DUGGAN, RES Jul 09, 2025 16:38 SUDHEER CARVALHO DO Jul 09, 2025 17:32
[2025-07-09] MEDS: ceFAZolin/D5W- 1GM premix 50 ML IV SCH (16:59)
[2025-07-09] MEDS: diltiazem 5mg/ml 5ml inj. IV ONE (17:12)
[2025-07-09] MEDS ORDERED: vancomycin/NS 1 GM ADD-VANTAGE 250 ML IV SCH (18:00)
[2025-07-09] MEDS: normal saline 1000ml 1,000 ML IV ONE (18:06)
[2025-07-09] MEDS: vancomycin/NS 1 GM ADD-VANTAGE 250 ML IV SCH (21:20)
[2025-07-09] MEDS: calcium carbonate 500mg tablet PO SCH (21:24)
[2025-07-09] MEDS: sacubitril/valsartan 24mg-26mg tablet PO SCH (21:24)
[2025-07-09] MEDS: morphine 4 MG/ML inj SYRINge IV PRN (22:18)
[2025-07-10] VITALS (10 sets, daily range): BP systolic 87–113; BP diastolic 42–67; PULSE 75–96; RESP 14–18; TEMP 97.3–98.4; O2SAT 94–98
[2025-07-10 06:41] LABS: MEAN PLATELET VOLUME 8.3 FL (7.4-10.4); RED CELL DISTRIBUTION WIDTH 16.5 % (11.5-14.5)
[2025-07-10 06:54] LABS: CREATININE 0.52 MG/DL (0.40-0.90); TOTAL CARBON DIOXIDE 26.2 MMOL/L (24-32); eCRCL 90 ML/MIN; eGFR > 90 ML/MIN
[2025-07-10] MEDS: EMPAGLIFLOZIN 10 MG TABLET PO SCH (08:12)
[2025-07-10] MEDS: potassium chloride 8mEq ER tablet PO SCH (08:12)
--- NOTE | 2025-07-10 08:22 | RADIOLOGY REPORT ---
CLINICAL INFORMATION: Suspected decompensated heart failure. TECHNIQUE: Single AP portable chest radiograph was obtained. COMPARISON: DI CHEST,SINGLE VIEW on DOS: 09/11/23 FINDINGS: Lungs: Clear. Cardiac: Heart size is within normal limits. Pacemaker leads extend to the right atrium and right ventricle. Pulmonary vasculature: Mildly prominent pulmonary vasculature. Mediastinum/jim: Moderate calcification at the aortic arch. Bones: No acute osseous abnormality identified. Other: No other significant findings. IMPRESSION: Mild prominence of the pulmonary vasculature May suggest a mild degree of pulmonary vascular congestion. Correlate with clinical findings.
[2025-07-10] MEDS: albumin (human) 25% 100 ML IV solution IV ONE (08:45)
--- NOTE | 2025-07-10 15:39 | PROGRESS NOTE- Residence ---
Progress Note - Resident Providers to CC Resident Creating Document: RASHEL DUGGAN RES ~ Antibiotic Timeout Antibiotic Ordered?: Yes Subjective Patient was seen and examined at the bedside. Today patient was on postoperative day 1, she passed fluctuance and did not pass stools. Patient reports improvement in her left hip pain- the patient is hypotensive this morning and IV albumin 25% was administered Objective Vital Signs Date Time Temp Pulse Resp B/P (MAP) Pulse Ox O2 Delivery O2 Flow Rate FiO2 07/10/25 15:15 16 07/10/25 10:50 98.4 89 87/42 (57) 94 Room Air 07/10/25 08:00 0.0 Result Diagram: 07/10/25 0610 07/10/25 0610 GENERAL: Awake, alert, oriented x4 HEENT : Normocephalic, atraumatic, pupils equal and reactive to light, extraocular movements intact, mild conjunctival pallor is present, no scleral icterus,oral mucosa moist NECK: neck is supple, trachea midline, no lymphadenopathy, no thyromegaly, no JV distention RESPIRATORY: Chest expansion equal bilaterally, breath sounds vesicular, no wheezes, or rhonchi. No use of accessory muscles, no tenderness on palpation. CARDIOVASCULAR: irregularly irregular, 3/6 blowing type of systolic ejection murmur heard over mitral, tricuspid, aortic area, patient has a pacemaker ABDOMEN: Soft, nontender, nondistended, bowel sounds present and normoactive. No organomegaly, no palpable mass, no rebound or guarding NEUROLOGICAL: Alert, oriented, normal memory, speech is normal Cranial nerves II-XII- intact Motor strength 4/5 in upper extremity, could not elicit in lower extremities Sensation-intact in all extremities Reflexes +2 and symmetrical Coordination is intact EXTREMITIES: Bilateral lower extremity lymphedema is present, peripheral pulses felt, left leg is deformed and rotated externally, Psychiatric:Appropriate mood and affect, Coagulation Studies Laboratory Tests Test 07/07/25 07:16 Prothrombin Time 12.3 SECONDS (9.0-12.0) H INR International Normalized Ratio 1.2 INR Coagulation Comments Advance Care Planning Advanced Care plannin - 30 Minutes Assessment Assessment 80 years old female with past medical history of left hip prosthesis, congestive heart failure, atrial fibrillation, arthritis , hypertension anxiety, depression, pacemaker is admitted for left hip pain. Patient endorses unbearable pain on the left leg for 2-3 days. She was seen at [facility] on 07/04/2025 and an x-ray was taken of the left hip which reported as the joint being in the normal position. However she reports that sometime while she was in patient wheelchair she felt sudden pain that she was not able to bear since then. Patient is overall a poor historian. She mentioned 06/08 stabbing type of pain which is on left hip, aggravated by moving leg and relieved by taking rest, nonradiating, with no associated numbness and tingling, not relieved by [id number] medications Patient is overall a poor historian Plan Plan Left hip pain secondary to Dislocation of internal left hip prosthesis S/P left total hip arthroplasty with stabilization of the hip on 07/09/2025 Patient undergone-revision of the left total hip arthroplasty with likely stabilization of the hip using a constrained cup Hip x-ray shows: Dislocated femoral component of left hip arthroplasty. Patient undergone-revision of the left total hip arthroplasty with likely stabilization of the hip using a constrained cup liner Orthopedics Dr. lagunas, patient received 2 units of PRBC in OR Continue vancomycin pharmacy to dose-day 2 Continue on ceftriaxone 1 g IV q.8h -day 2 Continue IV normal saline 100 mL/hour Atrial fibrillation with RVR Patient was given a dose of amiodarone in OR, the current heart rate is irregular with 110-150s Patient has a history of atrial fibrillation-she uses metoprolol p.o. and Eliquis We held Eliquis in view of postsurgical complication, metoprolol p.o. in view of soft blood pressure Patient is currently maintaining heart rate of 78 bpm We will continue Eliquis from tomorrow Hypotension: Patient is currently maintaining systolic blood pressure of 80s We have given her albumin 25% 100 mL IV, continue patient on maintenance fluids Normocytic anemia Patient hemoglobin is 8.5 PRBC if hemoglobin is less than 7.0 Hypertension Patient is currently maintaining soft blood pressure, hold home med if systolic blood pressure is less than 100 Congestive heart failure not in exacerbation Echocardiogram shows-LVEF 65%, RVSP 43% Chest x-ray shows-Mild prominence of the pulmonary vasculature May suggest a mild degree of pulmonary vascular congestion. Cardiology Dr RIDER recommended to start Entresto, Jardiance, atorvastatin, furosemide Held them because of low systolic blood pressure Restart Eliquis 2.5 mg p.o. b.i.d. on postop day 3 Patient currently not in acute distress Aortic stenosis Echocardiogram shows moderately stenotic aortic Recommend outpatient follow up with polisher and buffer Pulmonary hypertension likely secondary to congestive heart failure vs obesity Echocardiogram shows RVSP 43% Patient x-ray shows mild pulmonary congestion Anxiety/depression Continue home med buprenorphine, sertraline Osteoarthritis Pain medication as tolerated Code Status: DNR Analgesia/Sedation: Morphine Line/tube: Peripheral Nutrition: Heart healthy PT: Ordered Prognosis: Guarded Disposition: Patient will be monitored in ortho with telemetry Rashel Duggan PGY1-Internal Medicine Resident Approximately 40 minutes of critical care time was spent on patient care on 07/10/2025 Date of Service: Jul 10, 2025 Billing Provider: SUDHEER CARVALHO DO Common Visit Codes: 09544-[id number] CARE 30-74 MIN RASHEL DUGGAN, RES Jul 10, 2025 15:39 SUDHEER CARVALHO DO Jul 10, 2025 16:24
[2025-07-10] MEDS ORDERED: HYDROmorphone/PF 0.2 MG/ML SYRINGE IV PRN (16:40)
[2025-07-10] MEDS: HYDROmorphone inj. 0.5 MG/0.5 ML DISP.SYRIN IV PRN (16:56)
[2025-07-10] MEDS: VANCOMYCIN LEVEL IV ONE (19:51)
[2025-07-11 05:54] LABS: MEAN PLATELET VOLUME 8.9 FL (7.4-10.4); RED CELL DISTRIBUTION WIDTH 15.9 % (11.5-14.5)
[2025-07-11 06:00] VITALS: BP 110/64; PULSE 87; RESP 12; TEMP 98; O2SAT 96
[2025-07-11 06:19] LABS: TOTAL CARBON DIOXIDE 24.1 MMOL/L (24-32)
[2025-07-11 06:20] LABS: CREATININE 0.58 MG/DL (0.40-0.90); eCRCL 81 ML/MIN; eGFR > 90 ML/MIN
[2025-07-11 08:00] VITALS: RESP 17; O2SAT 96
[2025-07-11 10:00] VITALS: BP 101/63; PULSE 104; RESP 14; TEMP 98.9; O2SAT 96
[2025-07-11 14:07] VITALS: RESP 16
--- NOTE | 2025-07-11 17:06 | DISCHARGE SUMMARY-Residence ---
Discharge Summary Providers to CC Resident Creating Document: LIZANDRO FINN, RES ~ Discharge Summary Admission Diagnosis: left Hip Dislocation Hospital Course DATE OF ADMISSION: 07/07/2025 DATE OF DISCHARGE: 07/11/2025 Discharge Diagnosis\Comment: Left hip pain secondary to Dislocation of internal left hip prosthesis S/P left total hip arthroplasty with stabilization of the hip on 07/09/2025 Atrial fibrillation with RVR Hypotension, resolved Normocytic anemia History of Hypertension Chronic diastolic Congestive heart failure not in exacerbation Aortic stenosis Pulmonary hypertension likely secondary to congestive heart failure vs obesity Anxiety/depression Osteoarthritis Operations\Procedures: Left total hip arthroplasty with stabilization of hip Consultants: Dr. York Complications: None Condition on DC: Stable Discharge Summary: History of present illness: 80 years old female with past medical history of left hip prosthesis, congestive heart failure, atrial fibrillation, arthritis , hypertension anxiety, depression, pacemaker is admitted for left hip pain. Patient endorses unbearable pain on the left leg for 2-3 days. She was seen at [facility] on 07/04/2025 and an x-ray was taken of the left hip which reported as the joint being in the normal position. However she reports that sometime while she was in patient wheelchair she felt sudden pain that she was not able to bear since then. Patient is overall a poor historian. She mentioned 9/10 stabbing type of pain which is on left hip, aggravated by moving leg and relieved by taking rest, nonradiating, with no associated numbness and tingling, not relieved by [id number] medications Hospital course: Hip x-ray revealed dislocated femoral component of left hip arthroplasty. Patient underwent revision of the left total hip arthroplasty with stabilization of the hip using a constrained cup liner by Dr. York. Patient also received 2 units of PRBC during the surgery. Patient was started on vancomycin and ceftriaxone which were given for three days. Patient also had an episode of atrial fibrillation with RVR and one dose of amiodarone was given in the OR, she was also continued on home medication metoprolol a which adequately controlled the heart rate. Patient was restarted on Eliquis on the 2nd day of surgery. Echocardiogram showed EF of 65% with RVSP of 43 mmHg. Chest x-ray showed mild pulmonary congestion and the patient was restarted on home medication Entresto, Jardiance, furosemide, atorvastatin. Patient was hemodynamically at the time of discharge and was discharged to a rehab [facility]. He was discharged with DVT prophylaxis Lovenox and home medications. Physical examination at discharge: GENERAL: Awake, alert, oriented x4 HEENT : Normocephalic, atraumatic, pupils equal and reactive to light, extra ocular movements intact, mild conjunctival pallor is present, no scleral icterus,oral mucosa moist NECK: neck is supple, trachea midline, no lymphadenopathy, no thyromegaly, no JV distention RESPIRATORY: Chest expansion equal bilaterally, breath sounds vesicular, no wheezes, or rhonchi. No use of accessory muscles, no tenderness on palpation. CARDIOVASCULAR: irregularly irregular, 3/6 blowing type of systolic ejection murmur heard over mitral, tricuspid, aortic area, patient has a pacemaker ABDOMEN: Soft, nontender, nondistended, bowel sounds present and normoactive. No organomegaly, no palpable mass, no rebound or guarding NEUROLOGICAL: Alert, oriented, normal memory, speech is normal Cranial nerves II-XII- intact Motor strength 4/5 in upper extremity, could not elicit in lower extremities Sensation-intact in all extremities Reflexes +2 and symmetrical Coordination is intact EXTREMITIES: Bilateral lower extremity lymphedema is present, peripheral pulses felt, left leg is deformed and rotated externally, Psychiatric:Appropriate mood and affect, Laboratory Tests Test 07/10/25 06:10 07/10/25 08:05 07/10/25 19:13 07/11/25 05:05 White Blood Count 9.0 X10'3 8.4 X10'3 Red Blood Count 2.81 X10'6 2.54 X10'6 Hemoglobin 8.5 g/dl 7.8 g/dl Hematocrit 25.4 % 23.0 % Mean Corpuscular Volume 90.5 FL 90.6 FL Mean Corpuscular Hemoglobin 30.2 PG 30.8 PG Mean Corpuscular Hemoglobin Concent 33.3 g/dL 34.0 g/dL Red Cell Distribution Width 16.5 % 15.9 % Platelet Count 259 X10'3 228 X10'3 Mean Platelet Volume 8.3 FL 8.9 FL Neutrophils (%) (Auto) 80.9 % 70.8 % Lymphocytes (%) (Auto) 8.1 % 15.6 % Monocytes (%) (Auto) 10.9 % 12.7 % Eosinophils (%) (Auto) 0 % 0.6 % Basophils (%) (Auto) 0.1 % 0.3 % Neutrophils # (Auto) 7.2 X10'3 5.9 X10'3 Lymphocytes # (Auto) 0.7 X10'3 1.3 X10'3 Monocytes # (Auto) 1.0 X10'3 1.1 X10'3 Eosinophils # (Auto) 0.0 X10'3 0.1 X10'3 Basophils # (Auto) 0.0 X10'3 0.0 X10'3 CBC Comment Sodium Level 141 MMOL/L 142 MMOL/L Potassium Level 4.1 MMOL/L 3.9 MMOL/L Chloride Level 109 MMOL/L 111 MMOL/L Carbon Dioxide Level 26.2 MMOL/L 24.1 MMOL/L Anion Gap 6 7 Blood Urea Nitrogen 20 MG/DL 17 MG/DL Creatinine 0.52 MG/DL 0.58 MG/DL Estimated GFR/1.73 m2 > 90 ML/MIN > 90 ML/MIN BUN/Creatinine Ratio 38.5 29.3 Glucose Level 160 MG/DL 93 MG/DL Calcium Level 7.8 MG/DL 7.9 MG/DL Magnesium Level 1.9 MG/DL 1.9 MG/DL Total Bilirubin 0.9 MG/DL 0.7 MG/DL Aspartate Amino Transf (AST/SGOT) 79 U/L 100 U/L Alanine Aminotransferase (ALT/SGPT) 80 U/L 110 U/L Alkaline Phosphatase 178 IU/L 177 IU/L Total Protein 5.1 G/DL 5.2 G/DL Albumin 2.3 G/DL 2.3 G/DL Globulin 2.8 G/DL 2.9 G/DL Albumin/Globulin Ratio 0.8 0.8 Chemistry Comments Lactic Acid Level 1.1 MMOL/L Vancomycin Level Trough 18.5 ug/mL Vital Signs Date Time Temp Pulse Resp B/P (MAP) Pulse Ox O2 Delivery O2 Flow Rate FiO2 07/11/25 14:07 16 07/11/25 10:00 98.9 104 101/63 (76) 96 Room Air 07/10/25 08:00 0.0 Imaging: Hip x-ray: Hardware within the left hip status post arthroplasty. There is disarticulation of the acetabular and femoral prostheses consistent with dislocation resulting in cephalad subluxation of the femoral prosthesis with respect to the acetabulum. Diffuse generalized osseous demineralization noted. No definite evidence of fracture. Soft tissues are unremarkable. Echocardiogram: Normal LV size and wall thickness. Overall systolic function is normal. LVEF is 65%. Right ventricle is mildly dilated withi adequate function. Elevated right heart pressures with an RVSP of 43 mmHg. Left atrium is severely dilated. Trileaflet AV is moderately stenotic. SYD is measured at 1.20 cmsq. Peak / mean gradients of 45 / 27 mmHG. Peak velocity is measured at 3.36 m/sec. Trace insufficiency. Moderate mitral annular calcification. MV clip present with gradient of 13 / 5 mmHg. Peak velocity is measured at 1.82 m/sec. Moderate eccentric regurgitation anteriorly directed. The tricuspid valve is normal in structure with mild regurgitation. Normal pericardium. No effusion. Chest x-ray: Mild prominence of the pulmonary vasculature May suggest a mild degree of pulmonary vascular congestion. Correlate with clinical findings. Discharge recommendation: No need for any additional DVT prophylaxis as the patient is already on Eliquis for AFib. Follow up with the PCP and Dr. York regarding any additional recommendations including antibiotics. Weight-bearing as tolerated per Dr. York recommendations. Follow up with the cooky machine operator in a week regarding AFib. Return to the ER if you have worsening left hip pain or any signs of infection around the surgical site *Problems/Diagnosis: (1) Hip dislocation, left Status: Acute (2) Dislocation of internal hip prosthesis Status: Acute Total Time Spent on D/C: > 30 Minutes Date of Service: Jul 11, 2025 Billing Provider: MARCELINO URIAS MD Common Visit Codes: 89522-[id number] DISCH DAY >30min LIZANDRO FINN, RES Jul 11, 2025 16:21 MARCELINO URIAS MD Jul 12, 2025 15:24
== END 2025-07-11 17:23 | DRG 467 ==
LOC: ER 05:37 → ED HOLD 09:03 → ORTHO 4S 11:20
PROVIDERS: ADMIT Family Medicine; ATTEND Family Medicine
PROC: 0SPS0JZ Removal of Synthetic Substitute from Left Hip Joint, Femoral Surface, Open Approach (ICD-10-PCS; 2025-07-09)
PROC: 30233N1 Transfusion of Nonautologous Red Blood Cells into Peripheral Vein, Percutaneous Approach (ICD-10-PCS; 2025-07-09)
PROC: 0SRS0JZ Replacement of Left Hip Joint, Femoral Surface with Synthetic Substitute, Open Approach (ICD-10-PCS; principal; 2025-07-09 08:07)
DX: T84.021A Dislocation of internal left hip prosthesis, initial encounter (principal); I50.32 Chronic diastolic (congestive) heart failure; I48.91 Unspecified atrial fibrillation; I11.0 Hypertensive heart disease with heart failure; F41.9 Anxiety disorder, unspecified; F32.A Depression, unspecified; Y79.2 Prosthetic and other implants, materials and accessory orthopedic devices associated with adverse incidents; Z79.899 Other long term (current) drug therapy; Z88.1 Allergy status to other antibiotic agents; Z88.8 Allergy status to other drugs, medicaments and biological substances; Z91.040 Latex allergy status; Y92.89 Other specified places as the place of occurrence of the external cause
CPT/HCPCS: 36415; 36430; 71045; 73502; 80047; 80053; 80202; 82948; 83605; 83735; 83880; 85025; 85610; 86885; 86900; 86901; 86920; 87081; 93005; 93306; 96374; 96375; 99285; A4215; A4618; A4620; A6258; A6449; A7000; C1758; C1776; G0378; J0282; J0690; J1100; J1171; J2003; J2270; J2405; J2704; J3010; J3373; J3490; J7030; J7120; P9016; P9045; P9047